=== PATIENT | female | born 1950 | race Hispanic/Latino ===

== ENCOUNTER 2018-10-18 22:40 | Emergency (ER) | payer MEDICARE ==
[~2018-10-18 22:40] MED LIST: ALBUHFA IH; CANA1TAB2 PO; LOSA1TAB37 PO; POTA-79 PO; PRAV40TA3 PO; PRED20TA3 PO; VITAMIN D2
[2018-10-19] MEDS ORDERED: IBUPROFEN 600 MG TABLET ONE
[2018-10-19] MEDS ORDERED: BENZONATATE 100 MG CAPSULE PO ONE
== END 2018-10-19 00:59 | disposition home or self-care (01) ==
LOC: EDH 22:40
DX: J06.9 Acute upper respiratory infection, unspecified (principal); J02.8 Acute pharyngitis due to other specified organisms; B97.89 Other viral agents as the cause of diseases classified elsewhere; I10 Essential (primary) hypertension; E78.5 Hyperlipidemia, unspecified; Z90.49 Acquired absence of other specified parts of digestive tract; Z98.890 Other specified postprocedural states
CPT/HCPCS: 87880

== ENCOUNTER 2018-11-14 11:23 | Inpatient (IN) | payer MEDICARE ==
[~2018-11-14] VITALS: Ht 157.5 cm; Wt 103.7 kg
[2018-11-14] MEDS ORDERED: ACETAMINOPHEN EXTRA STRENGTH 500 MG TABLET ONE (11:49)
[2018-11-14] MEDS ORDERED: SODIUM CHLORIDE 0.9% 1000ML 1,000 ML IV ONE ×2 (11:49→13:57)
[2018-11-14 12:09] LABS: APPEARANCE,URINE CLOUDY (CLEAR); BILIRUBIN,URINE NEGATIVE (NEGATIVE); COLOR,URINE YELLOW (YELLOW); GLUCOSE, URINE (UA) 500 mg/dL (NEGATIVE); KETONES,URINE NEGATIVE (NEGATIVE); LEUKOCYTE ESTERASE ,URINE SMALL (NEGATIVE); NITRATE,URINE POSITIVE (NEGATIVE); OCCULT BLOOD,URINE MODERATE (NEGATIVE); PROTEIN,URINE 100 mg/dL (NEGATIVE)
[2018-11-14 12:10] LABS: BACTERIA,URINE Many /HPF (None Seen); RBC,URINE 0-1 /HPF (0-1); WBC,URINE 26-50 /HPF (0-1)
[2018-11-14 12:11] LABS: SQUAMOUS EPITHELIAL CELL,UR Moderate /HPF (0-2)
[2018-11-14 12:22] LABS: BASOPHILS % (AUTO) 0.6 % (0.0-5.0); EOSINOPHILS % (AUTO) 0.1 % (0.0-8.0); HEMATOCRIT 38.3 % (36-48); MEAN CORPUSCULAR HEMOGLOBIN 28.5 pg (27.0-33.0); MEAN CORPUSCULAR HGB CONC 32.9 g/dL (32.0-36.0); MEAN CORPUSCULAR VOLUME 86.8 fL (79-99); MONOCYTES % (AUTO) 8.3 % (3.0-13.0); PLATELET COUNT (AUTO) 232 K/uL (130-400); RED BLOOD CELL COUNT(AUTO) 4.41 MIL/uL (4.00-5.50); RED CELL DISTRIBUTION WIDTH 16.6 % (11.0-15.5); WHITE BLOOD COUNT (AUTO) 18.8 K/uL (4.8-10.8)
[2018-11-14 12:38] LABS: CARBON DIOXIDE 26 mmol/L (21-32); CHLORIDE 96 mmol/L (101-111); CREATININE 1.5 mg/dL (0.5-1.5); GLOMERULAR FILTR. RATE CALC 37 mL/min (>60); GLUCOSE,RANDOM 196 mg/dL (70-105); POTASSIUM 3.3 mmol/L (3.5-5.1); SODIUM SERUM 136 mmol/L (136-145); UREA NITROGEN, BLOOD 27 mg/dL (7-18)
[2018-11-14 12:44] LABS: INR 0.95 (0.85-1.15); PARTIAL THROMBOPLASTIN TIME 29.1 SEC (26.3-35.5)
[2018-11-14] MEDS: SODIUM CHLORIDE 0.9% 1000ML 1,000 ML IV SCH ×2 (13:45→23:23)
[2018-11-14] MEDS ORDERED: ACETAMINOPHEN 325 MG TAB PO PRN ×2 (13:45)
[2018-11-14] MEDS ORDERED: ONDANSETRON HCL 4 MG/2 ML VIAL IV PRN (13:45)
[2018-11-14] MEDS ORDERED: MORPHINE SULFATE 2 MG/ML 1ML SYG IV PRN (13:45)
[2018-11-14] MEDS ORDERED: ZOSYN 3.375GM+NS 50ML 50 ML IV ONE (13:57)
[2018-11-14] MEDS ORDERED: POTASSIUM CHLORIDE 20 MEQ ERTAB PO ONE (14:04)
[2018-11-14 14:11] LABS: ALANINE AMINOTRANSFERASE 41 U/L (12-78); ALBUMIN 3.1 g/dL (3.5-5.0); MYOGLOBIN 103 ng/mL (10-92); TROPONIN I < 0.04 ng/mL (0.00-0.06)
[2018-11-14 14:12] LABS: ASPARTATE AMINOTRANSFERASE 20 U/L (10-37); BILIRUBIN,TOTAL 1.1 mg/dL (0.2-1.0); CREATINE KINASE, TOTAL 84 U/L (21-232); TOTAL PROTEIN, SERUM 7.3 g/dL (6.0-8.3)
[2018-11-14] MEDS ORDERED: LEVOFLOXACIN 750 MG/D5W 150 ML 150 ML ONE (15:09)
[2018-11-14] MEDS ORDERED: LIDOCAINE HCL-MPF 1% 2ML VIAL IVP PRN (15:15)
[2018-11-14] MEDS ORDERED: POTASSIUM CHLORIDE 10% ELIXIR 20 MEQ/15 ML UDCUP PO PRN (15:15)
[2018-11-14] MEDS ORDERED: POTASSIUM CHLORIDE 20MEQ/100ML 100 ML IV PRN (15:15)
[2018-11-14 15:55] VITALS: BP 101/47
[2018-11-14] MEDS ORDERED: CANA1TAB4 PO (17:57)
[2018-11-14] MEDS ORDERED: ATOR40TA69 PO (17:57)
[2018-11-14] MEDS ORDERED: VIT1TABL66 PO (17:57)
[2018-11-14] MEDS ORDERED: ASPI-555 PO (17:57)
[2018-11-14] MEDS ORDERED: LOSA1TAB37 PO (17:57)
[2018-11-14] MEDS ORDERED: POTA-9 PO (17:57)
[2018-11-14] MEDS ORDERED: CITA10TA7 PO (17:57)
[2018-11-14] MEDS ORDERED: PRAM0.122 PO (17:57)
[2018-11-14 19:18] VITALS: BP 95/56
[2018-11-14] MEDS: ZOSYN 3.375GM+NS 50ML 50 ML IV SCH (20:34)
[2018-11-14] MEDS: FAMOTIDINE 20MG TAB 20 MG TAB PO SCH (20:35)
--- NOTE | 2018-11-14 20:35 | NUR ---
ASSESS SHIFT ASSESSMENT DONE. DUE MEDS ADMINISTERED, TOLERATED WELL. KEPT RESTED AND COMFORTABLE. CALL LIGHT WITHIN REACH. WILL MONITOR PT.
[2018-11-14] MEDS: POTASSIUM CHLORIDE 20 MEQ ERTAB PO PRN ×2 (22:05→23:58)
--- NOTE | 2018-11-14 22:05 | NUR ---
KCL POTASSIUM COVERAGE CONTINUED. PO POTASSIUM GIVEN FOR KCL=3.3. TOLERATED WELL. ADMISSION PACKET GIVEN TO PT, SIGNED PAPERS PLACED IN CHART. KEPT COMFORTABLE. WILL MONITOR PT.
[2018-11-15] VITALS: BP 124/58
[2018-11-15] MEDS: SODIUM CHLORIDE 0.9% 1000ML 1,000 ML IV SCH ×4 (01:47→23:50)
--- NOTE | 2018-11-15 01:47 | NUR ---
IVF PT FAIRLY ASLEEP, NO DISTRESS NOTED. KEPT UNDISTURBED FOR NOW. NEW IV BAG HUNG. CALL LIGHT WITHIN REACH. WILL MONITOR PT.
[2018-11-15 04:18] VITALS: BP 111/53
[2018-11-15] MEDS: ZOSYN 3.375GM+NS 50ML 50 ML IV SCH ×3 (04:32→20:47)
--- NOTE | 2018-11-15 05:00 | NUR ---
PIV LAUNDRY OR DRY CLEANERS COUNTER CLERK WAS ABOUT TO HUNG IV ANTIBIOTICS WHEN NOTED PIV SITE BLEEDING. PT HAD ACCIDENTALLY PULLED OUT PIV WHEN SHE WENT TO THE [facility]. SHE CLAIMS THAT SHE FORGOT SHE HAS PIV. CATHETER INTACT. CLEANED PT AND NEW GOWN AND LINEN PROVIDED. RE-INSERTED PIV G20 TO RFA. PT TOLERATED RE-INSERTION WELL. CONTINUED IVF AND IV ANTIBIOTIC INFUSION. RE-ITERATED FALL PRECAUTIONS. INSTRUCTED PT TO CALL WHEN IN NEED TO GET OUT OF BED. CALL LIGHT WITHIN REACH. BED ALARM ACTIVATED. Addendum: 11/15/18 at 0513 by ANTONI HAN RN RN Amended: Links added.
[2018-11-15 05:18] LABS: HEMATOCRIT 31.7 % (36-48); MEAN CORPUSCULAR HEMOGLOBIN 28.9 pg (27.0-33.0); MEAN CORPUSCULAR HGB CONC 33.5 g/dL (32.0-36.0); MEAN CORPUSCULAR VOLUME 86.3 fL (79-99); PLATELET COUNT (AUTO) 184 K/uL (130-400); RED BLOOD CELL COUNT(AUTO) 3.68 MIL/uL (4.00-5.50); RED CELL DISTRIBUTION WIDTH 17.1 % (11.0-15.5); WHITE BLOOD COUNT (AUTO) 13.6 K/uL (4.8-10.8)
[2018-11-15 05:31] LABS: ALBUMIN 2.2 g/dL (3.5-5.0); BILIRUBIN,TOTAL 0.9 mg/dL (0.2-1.0); CREATININE 1.1 mg/dL (0.5-1.5); POTASSIUM 3.4 mmol/L (3.5-5.1); TOTAL PROTEIN, SERUM 5.8 g/dL (6.0-8.3)
[2018-11-15] MEDS: POTASSIUM CHLORIDE 20 MEQ ERTAB PO PRN (06:01)
[2018-11-15 07:30] VITALS: BP 125/60
--- NOTE | 2018-11-15 07:35 | NUR ---
ASSESSMENT ENCOUNTERED PT IN HIGH OCHOA'S POSITION, A&OX3, CALM COOPERATIVE AND DOES NOT APPEAR TO BE IN ANY DISTRESS NOR ANY NEURO DEFICITS PRESENT. PT DENIES PAIN, SOB, NAUSEA. PT DOES C/O GENERALIZED BODY WEAKNESS WITH INTERMITTENT DISCOMFORT TO BILATERAL SIDES OF FACE, NO REDNESS PRESENT BUT IS TENDER TO TOUCH, PT IS AMBULATORY, GAIT SLOW BUT STEADY WITH ASSIST. CALL LIGHT WITHIN REACH.
[2018-11-15] MEDS: ENOXAPARIN SODIUM 30 MG/0.3 ML SQ SCH (10:20)
[2018-11-15 11:00] VITALS: BP 116/59
--- NOTE | 2018-11-15 11:35 | NUR ---
DC Sw met with pt who lives alone, sister Lorelei Mcduffie [phone] is ER contact and assist with transport prn. Pt has provider 5hr daily and no DME or HH services. Pt sees Dr Oliva Larson and uses [facility]. Denies dc needs, plan is home at dc Addendum: 11/15/18 at 1137 by FAB AMANDA Amended: Links added.
[2018-11-15 16:00] VITALS: BP 124/61
[2018-11-15 20:00] VITALS: BP 134/64
[2018-11-15] MEDS: FAMOTIDINE 20MG TAB 20 MG TAB PO SCH (20:47)
--- NOTE | 2018-11-15 20:47 | NUR ---
ASSESS SHIFT ASSESSMENT DONE, PLEASE REFER TO CHART. DUE MEDS ADMINISTERED, TOLERATED WELL. KEPT RESTED AND COMFORTABLE. CALL LIGHT WITHIN REACH. WILL MONITOR PT.
[2018-11-15] MEDS: INSULIN HUMULIN R 100 UNIT/ML 3ML SQ SCH (20:48)
[2018-11-16] VITALS: BP 129/58
--- NOTE | 2018-11-16 02:00 | NUR ---
ROUNDS PT RESTING WELL. NO DISTRESS NOTED. KEPT UNDISTURBED. WILL MONITOR.
[2018-11-16 04:00] VITALS: BP 141/80
[2018-11-16] MEDS: SODIUM CHLORIDE 0.9% 1000ML 1,000 ML IV SCH (04:20)
[2018-11-16] MEDS: ZOSYN 3.375GM+NS 50ML 50 ML IV SCH (04:20)
[2018-11-16 05:00] LABS: HEMATOCRIT 30.9 % (36-48); MEAN CORPUSCULAR HEMOGLOBIN 28.3 pg (27.0-33.0); MEAN CORPUSCULAR HGB CONC 32.6 g/dL (32.0-36.0); MEAN CORPUSCULAR VOLUME 86.9 fL (79-99); PLATELET COUNT (AUTO) 184 K/uL (130-400); RED BLOOD CELL COUNT(AUTO) 3.56 MIL/uL (4.00-5.50); RED CELL DISTRIBUTION WIDTH 16.7 % (11.0-15.5)
[2018-11-16 05:14] LABS: CREATININE 1.1 mg/dL (0.5-1.5); POTASSIUM 3.2 mmol/L (3.5-5.1)
[2018-11-16] MEDS: POTASSIUM CHLORIDE 20 MEQ ERTAB PO PRN ×2 (05:29→09:31)
[2018-11-16] MEDS: INSULIN HUMULIN R 100 UNIT/ML 3ML SQ SCH ×4 (06:05→20:30)
--- NOTE | 2018-11-16 07:15 | NUR ---
REPORT REPORT GIVEN TO AM SHIFT. PT RESTING WELL. ENDORSING FOR MORE CARE AND MANAGEMENT.
[2018-11-16 07:39] VITALS: BP 125/57
[2018-11-16] MEDS: ENOXAPARIN SODIUM 30 MG/0.3 ML SQ SCH (09:29)
[2018-11-16 11:42] VITALS: BP 121/47
[2018-11-16] MEDS: LEVOFLOXACIN 500 MG/D5W 100 ML 100 ML IV SCH (12:28)
[2018-11-16] MEDS: POTASSIUM CHLORIDE 20 MEQ ERTAB PO SCH ×3 (12:33→20:30)
[2018-11-16 16:33] VITALS: BP 135/61
[2018-11-16 20:00] VITALS: BP 132/67
[2018-11-16] MEDS: FAMOTIDINE 20MG TAB 20 MG TAB PO SCH (20:30)
--- NOTE | 2018-11-16 20:30 | NUR ---
MEDS SHIFT ASSESSMENT DONE, PLEASE REFER TO CHART. DUE MEDS ADMINISTERED, TOLERATED WELL. KEPT RESTED AND COMFORTABLE. CALL LIGHT WITHIN REACH. WILL MONITOR PT.
[2018-11-17] VITALS: BP 136/67
--- NOTE | 2018-11-17 02:00 | NUR ---
ROUNDS PT FAIRLY ASLEEP WITH RESPIRATIONS EVEN AND UNLABORED. NO DISTRESS NOTED. KEPT UNDISTURBED FOR NOW. WILL CONTINUET O MONITOR. CALL LIGHT WITHIN REACH.
[2018-11-17 04:12] VITALS: BP 124/66
--- NOTE | 2018-11-17 05:00 | NUR ---
ROUNDS PT STILL FAIRLY ASLEEP. NO DISTRESS NOTED. KEPT RESTED AND COMFORTABLE. FOR MORE CARE.
[2018-11-17 06:10] LABS: HEMATOCRIT 30.5 % (36-48); MEAN CORPUSCULAR HEMOGLOBIN 29.5 pg (27.0-33.0); MEAN CORPUSCULAR HGB CONC 34.3 g/dL (32.0-36.0); MEAN CORPUSCULAR VOLUME 86.1 fL (79-99); PLATELET COUNT (AUTO) 202 K/uL (130-400); RED BLOOD CELL COUNT(AUTO) 3.54 MIL/uL (4.00-5.50); RED CELL DISTRIBUTION WIDTH 17.1 % (11.0-15.5)
[2018-11-17] MEDS: INSULIN HUMULIN R 100 UNIT/ML 3ML SQ SCH ×2 (06:19→11:30)
[2018-11-17 06:23] LABS: CREATININE 0.9 mg/dL (0.5-1.5); POTASSIUM 4.1 mmol/L (3.5-5.1)
[2018-11-17 08:00] VITALS: BP 148/59
--- NOTE | 2018-11-17 08:30 | NUR ---
ACTIVITY: AMB IN ROOM, WITH NO C/O.
[2018-11-17] MEDS: ENOXAPARIN SODIUM 30 MG/0.3 ML SQ SCH (09:00)
[2018-11-17] MEDS: POTASSIUM CHLORIDE 20 MEQ ERTAB PO SCH (09:01)
[2018-11-17] MEDS: LEVOFLOXACIN 500 MG/D5W 100 ML 100 ML IV SCH (09:36)
--- NOTE | 2018-11-17 10:32 | NUR ---
ASSESSMENT: WILIAM HERNANDEZ LIGHT RAIL VEHICLE OPERATOR REVIEWED LABS , CULTURES , DISCUSSED POC WITH PT FOR DISCHARGE HOME AND UNDERSTANDING VERBALIZED AND AGREES WITH POC.
[2018-11-17] MEDS ORDERED: LEVO500T2 PO (10:34)
[2018-11-17 12:00] VITALS: BP 120/68
--- NOTE | 2018-11-17 14:30 | NUR ---
DISCHARGE: DISCHARGE INSTRUCTIONS GIVEN TO PT AND SISTER PER SAHRA VILLAGOMEZ RN ([facility]). 1445 DISCHARGED HOME VIA W/C TO PRIVATE CAR WITH HER SISTER.
== END 2018-11-17 14:45 | disposition home or self-care (01) | DRG 872 ==
LOC: EDH 11:23 → EDHIP 13:49 → 3CH 16:19
PROVIDERS: ADMIT Hospitalist; ATTEND Hospitalist
DX: A41.9 Sepsis, unspecified organism (principal); N39.0 Urinary tract infection, site not specified; Z68.41 Body mass index [BMI] 40.0-44.9, adult; H70.91 Unspecified mastoiditis, right ear; I10 Essential (primary) hypertension; E11.9 Type 2 diabetes mellitus without complications; E78.5 Hyperlipidemia, unspecified; M19.90 Unspecified osteoarthritis, unspecified site; E87.6 Hypokalemia; B96.20 Unspecified Escherichia coli [E. coli] as the cause of diseases classified elsewhere; E66.9 Obesity, unspecified; Z82.49 Family history of ischemic heart disease and other diseases of the circulatory system; Z83.3 Family history of diabetes mellitus; Z79.84 Long term (current) use of oral hypoglycemic drugs
CPT/HCPCS: 36415; 70450; 71045; 80048; 80053; 81001; 82550; 82948; 83605; 83874; 84484; 85025; 85027; 85610; 85730; 87040; 87077; 87088; 87186; 87324; 87804; 93005; 97039; 99291; G0378; J1650; J1956; J2543; J7030

== ENCOUNTER 2019-02-16 18:59 | Emergency (ER) | payer MEDICARE ==
[~2019-02-16 18:59] MED LIST changes: -ALBUHFA IH; +ASPI-555 PO; +ATOR40TA69 PO; -CANA1TAB2 PO; +CANA1TAB4 PO; +CITA10TA7 PO; +LEVO500T2 PO; -POTA-79 PO; +POTA-9 PO; +PRAM0.122 PO; -PRAV40TA3 PO; -PRED20TA3 PO; +VIT1TABL66 PO
[2019-02-16 19:19] LABS: APPEARANCE,URINE CLOUDY (CLEAR); BILIRUBIN,URINE NEGATIVE (NEGATIVE); COLOR,URINE YELLOW (YELLOW); GLUCOSE, URINE (UA) >=1000 mg/dL (NEGATIVE); KETONES,URINE 5 mg/dL (NEGATIVE); LEUKOCYTE ESTERASE ,URINE TRACE (NEGATIVE); NITRATE,URINE POSITIVE (NEGATIVE); OCCULT BLOOD,URINE SMALL (NEGATIVE); PROTEIN,URINE 30 mg/dL (NEGATIVE); UROBILINOGEN,URINE 0.2 mg/dL (0.2-1.0)
[2019-02-16 19:28] LABS: BACTERIA,URINE Moderate /HPF (None Seen); SQUAMOUS EPITHELIAL CELL,UR Moderate /HPF (0-2)
[2019-02-16 19:29] LABS: MUCUS,URINE Few LPF (None Seen)
[2019-02-16] MEDS ORDERED: SODIUM CHLORIDE 0.9% 1000ML 1,000 ML IV ONE (19:29)
[2019-02-16 19:33] LABS: BASOPHILS % (AUTO) 0.7 % (0.0-5.0); EOSINOPHILS % (AUTO) 1.8 % (0.0-8.0); HEMATOCRIT 33.1 % (36-48); LYMPHOCYTES % (AUTO) 9.2 % (21.0-51.0); MEAN CORPUSCULAR HEMOGLOBIN 28.9 pg (27.0-33.0); MEAN CORPUSCULAR HGB CONC 33.4 g/dL (32.0-36.0); MEAN CORPUSCULAR VOLUME 86.4 fL (79-99); MONOCYTES % (AUTO) 5.1 % (3.0-13.0); NEUTROPHILS % (AUTO) 83.2 % (40.0-77.0); PLATELET COUNT (AUTO) 274 K/uL (130-400); RED BLOOD CELL COUNT(AUTO) 3.83 MIL/uL (4.00-5.50); RED CELL DISTRIBUTION WIDTH 15.1 % (11.0-15.5); WHITE BLOOD COUNT (AUTO) 16.8 K/uL (4.8-10.8)
[2019-02-16 19:44] LABS: CREATININE 1.1 mg/dL (0.5-1.5); POTASSIUM 3.3 mmol/L (3.5-5.1)
[2019-02-16 19:49] LABS: ALBUMIN 2.9 g/dL (3.5-5.0); BILIRUBIN,TOTAL 0.7 mg/dL (0.2-1.0); TOTAL PROTEIN, SERUM 6.5 g/dL (6.0-8.3)
[2019-02-16] MEDS ORDERED: ONDANSETRON HCL 4 MG/2 ML VIAL ONE (20:05)
[2019-02-16] MEDS ORDERED: LIDOCAINE HCL 2% VISCOUS 15 ML UDCUP ONE (20:05)
[2019-02-16] MEDS ORDERED: MAGNESIUM HYDROXIDE 30 ML/UDCUP ONE (20:05)
[2019-02-16] MEDS ORDERED: CEFTRIAXONE SODIUM 1 GM ONE (20:05)
[2019-02-16] MEDS ORDERED: FAMOTIDINE/PF 20 MG/2 ML VIAL IV ONE (20:06)
[2019-02-16] MEDS ORDERED: IOHEXOL-350 75 ML VIAL IV ONE (20:39)
== END 2019-02-16 21:47 | disposition home or self-care (01) ==
LOC: EDH 18:59
DX: K29.00 Acute gastritis without bleeding (principal); N10 Acute pyelonephritis; E78.5 Hyperlipidemia, unspecified; I10 Essential (primary) hypertension
CPT/HCPCS: 36415; 74177; 80053; 81001; 83690; 85025; 96374; 96375; 99285; J0696; J2405; J3490; J7030; Q9967

== ENCOUNTER 2019-07-09 12:52 | Emergency (ER) | payer MEDICARE ==
[2019-07-09] MEDS ORDERED: ASPIRIN 325 MG TABLET ONE (13:03)
[2019-07-09] MEDS ORDERED: SODIUM CHLORIDE 0.9% 1000ML 1,000 ML IV ONE ×2 (14:00→15:55)
[2019-07-09 14:15] LABS: BASOPHILS % (AUTO) 0.2 % (0.0-5.0); HEMATOCRIT 35.1 % (36-48); LYMPHOCYTES % (AUTO) 8.9 % (21.0-51.0); MEAN CORPUSCULAR HEMOGLOBIN 26.8 pg (27.0-33.0); MEAN CORPUSCULAR HGB CONC 32.2 g/dL (32.0-36.0); MEAN CORPUSCULAR VOLUME 83.4 fL (79-99); MONOCYTES % (AUTO) 5.2 % (3.0-13.0); PLATELET COUNT (AUTO) 246 K/uL (130-400); RED BLOOD CELL COUNT(AUTO) 4.21 MIL/uL (4.00-5.50); RED CELL DISTRIBUTION WIDTH 14.5 % (11.0-15.5); WHITE BLOOD COUNT (AUTO) 14.7 K/uL (4.8-10.8)
[2019-07-09 14:31] LABS: POTASSIUM 3.1 mmol/L (3.5-5.1)
[2019-07-09 14:36] LABS: ALBUMIN 3.1 g/dL (3.5-5.0); BILIRUBIN,TOTAL 0.9 mg/dL (0.2-1.0)
[2019-07-09 15:35] LABS: INR 1.04 (0.85-1.15); PARTIAL THROMBOPLASTIN TIME 28.5 SEC (26.3-35.5); PROTHROMBIN TIME 10.9 SEC (9.6-11.6)
[2019-07-09] MEDS ORDERED: POTASSIUM CHLORIDE 20 MEQ ERTAB PO ONE (15:55)
[2019-07-09] MEDS ORDERED: AMOXICILLIN/POTASSIUM CLAV 875-125 TABLET PO ONE (16:45)
== END 2019-07-09 18:51 | disposition home or self-care (01) ==
LOC: EDH 12:52
DX: R10.84 Generalized abdominal pain (principal); R50.9 Fever, unspecified; M79.10 Myalgia, unspecified site; I10 Essential (primary) hypertension; E78.5 Hyperlipidemia, unspecified; E66.9 Obesity, unspecified; Z90.49 Acquired absence of other specified parts of digestive tract; Z98.890 Other specified postprocedural states
CPT/HCPCS: 36415; 71045; 74176; 80053; 82550; 83880; 84484; 85025; 85610; 85730; 87804 ×2; 93005; 99285; J7030 ×2

== ENCOUNTER 2020-08-31 09:00 | Inpatient (IN) | payer MEDICARE ==
[~2020-08-31] VITALS: Ht 158.8 cm; Wt 119.8 kg
[~2020-08-31 09:00] MED LIST changes: -ASPI-555 PO; -CANA1TAB4 PO; -CITA10TA7 PO; +CITA10TA89 PO; -LEVO500T2 PO; -LOSA1TAB37 PO; +POTA-10 PO; -POTA-9 PO; -VIT1TABL66 PO; -VITAMIN D2; +VITAMIN D2 PO
[2020-08-31 10:52] LABS: APPEARANCE,URINE Clear (CLEAR); BILIRUBIN,URINE Negative (NEGATIVE); COLOR,URINE Yellow (YELLOW); GLUCOSE, URINE (UA) Negative (NEGATIVE); KETONES,URINE Negative (NEGATIVE); LEUKOCYTE ESTERASE ,URINE Moderate (NEGATIVE); NITRATE,URINE Negative (NEGATIVE); OCCULT BLOOD,URINE Trace (NEGATIVE); PROTEIN,URINE Trace mg/dL (NEGATIVE); UROBILINOGEN,URINE 0.2 mg/dL (0.2-1.0)
[2020-08-31 11:01] LABS: BASOPHILS % (AUTO) 0.8 % (0.0-5.0); EOSINOPHILS % (AUTO) 7.1 % (0.0-8.0); HEMATOCRIT 34.4 % (36-48); LYMPHOCYTES % (AUTO) 15.4 % (21.0-51.0); MEAN CORPUSCULAR HEMOGLOBIN 27.6 pg (27.0-33.0); MEAN CORPUSCULAR HGB CONC 32.3 g/dL (32.0-36.0); MEAN CORPUSCULAR VOLUME 85.6 fL (79-99); MONOCYTES % (AUTO) 6.3 % (3.0-13.0); PLATELET COUNT (AUTO) 259 K/uL (130-400); RED BLOOD CELL COUNT(AUTO) 4.02 MIL/uL (4.00-5.50); RED CELL DISTRIBUTION WIDTH 13.7 % (11.0-15.5); WHITE BLOOD COUNT (AUTO) 10.9 K/uL (4.8-10.8)
[2020-08-31 11:09] LABS: CREATININE 0.9 mg/dL (0.5-1.5)
[2020-08-31 11:26] LABS: BACTERIA,URINE Few /HPF (None Seen); MUCUS,URINE Few LPF (None Seen)
[2020-08-31 12:41] LABS: INR 1.01 (0.85-1.15); PROTHROMBIN TIME 10.5 SEC (9.6-11.6)
[2020-09-04] MEDS ORDERED: LOSA50TA64 PO (12:52)
[2020-09-04] MEDS ORDERED: BUDE10.22 IH (12:52)
[2020-09-04] MEDS ORDERED: HYDR12.54 PO (12:52)
[2020-09-04] MEDS ORDERED: A20IH1 IH (12:52)
[2020-09-05] VITALS (22 sets, daily range): BP systolic 107–152; BP diastolic 47–97
[2020-09-05] MEDS ORDERED: 0.9%NACL 1000ML 1,000 ML IV ONE (06:44)
[2020-09-05] MEDS: CEFAZOLIN SODIUM 1 GM VIAL ONE ×2 (07:34→11:22)
[2020-09-05] MEDS ORDERED: CEFAZOLIN SODIUM 1 GM VIAL ONE ×2 (07:55→18:14)
[2020-09-05] MEDS: GENTAMICIN SULFATE 240 MG in 0.9%NACL 100ML 100 ML IV SCH ×3 (08:23→15:18)
[2020-09-05] MEDS: CEFAZOLIN SODIUM 1 GM VIAL IVP ONE ×2 (08:27→10:40)
[2020-09-05] MEDS ORDERED: CELECOXIB 200 MG CAP ONE (09:17)
[2020-09-05] MEDS ORDERED: METOCLOPRAMIDE 10 MG/2 ML VIAL ONE (09:17)
[2020-09-05] MEDS ORDERED: KETOROLAC 15MG/ML VIAL (15MG/ML) ONE (09:17)
[2020-09-05] MEDS ORDERED: ACETAMINOPHEN 500 MG TABLET ONE (09:17)
[2020-09-05] MEDS ORDERED: LIDOCAINE HCL-MPF 1% 5ML AMP IJ ONE (09:34)
[2020-09-05] MEDS ORDERED: FENTANYL CITRATE PF 50 MCG/1 ML 2ML VIAL ONE ×2 (09:35→11:20)
[2020-09-05] MEDS ORDERED: ROCURONIUM 10MG/1ML SYR 10 MG/ML ML ONE (09:35)
[2020-09-05] MEDS ORDERED: MIDAZOLAM HCL 1 MG/ML 2ML VIAL ONE (09:35)
[2020-09-05] MEDS ORDERED: PROPOFOL 10 MG/ML 20ML VIAL IV ONE ×2 (09:35→12:47)
[2020-09-05] MEDS ORDERED: TRANEXAMIC ACID 1000MG/10ML ONE ×2 (09:58→13:30)
[2020-09-05] MEDS ORDERED: EPHEDRINE SULFATE 50 MG/ML AMPULE ONE (10:47)
[2020-09-05] MEDS ORDERED: KCL 20 MEQ ERTAB PO PRN (13:00)
[2020-09-05] MEDS ORDERED: TRAMADOL HCL 50 MG TABLET PO PRN (13:00)
[2020-09-05] MEDS ORDERED: DiphenhydrAMINE HCL 50 MG/ML VIAL IVP PRN (13:00)
[2020-09-05] MEDS ORDERED: POTASSIUM CHLORIDE 10% ELIXIR 20 MEQ/15 ML UDCUP PO PRN (13:00)
[2020-09-05] MEDS ORDERED: FERROUS FUMARATE 324 MG TABLET PO PRN (13:00)
[2020-09-05] MEDS ORDERED: POTASSIUM CHLORIDE 20MEQ/100ML 100 ML IV PRN (13:00)
[2020-09-05] MEDS ORDERED: KETOROLAC 15MG/ML VIAL (15MG/ML) IV PRN (13:00)
[2020-09-05] MEDS: ACETAMINOPHEN 500 MG TABLET PO SCH ×2 (13:00→19:50)
[2020-09-05] MEDS: 0.9%NACL 1000ML 1,000 ML IV SCH ×3 (13:00→19:59)
[2020-09-05] MEDS ORDERED: TEMAZEPAM 15 MG CAPSULE PO PRN (13:00)
[2020-09-05] MEDS ORDERED: LIDOCAINE HCL-MPF 1% 2ML VIAL IV PRN (13:00)
[2020-09-05] MEDS ORDERED: ONDANSETRON 4MG INJ IVP PRN (13:00)
[2020-09-05] MEDS ORDERED: GLYCOPYRROLATE 1 MG/5 ML SYRINGE ONE (13:10)
[2020-09-05] MEDS ORDERED: MEPERIDINE-PF 25 MG/ML SYG ONE (14:08)
[2020-09-05] MEDS ORDERED: ALBUTEROL INHALER 90MCG/INH IH PRN (15:15)
[2020-09-05] MEDS ORDERED: EMPA25TA PO (16:14)
[2020-09-05] MEDS: INSULIN HUMULIN R 100 UNIT/ML 3ML SQ SCH ×2 (16:30→19:52)
[2020-09-05] MEDS: CEFAZOLIN SODIUM 100 GM IV SCH (18:00)
[2020-09-05] MEDS: OXYCODONE HCL 5 MG TAB PO PRN (18:25)
[2020-09-05] MEDS ORDERED: ASPIRIN 81MG CHEW TAB ONE (18:47)
[2020-09-05] MEDS ORDERED: FAMOTIDINE 20MG TAB ONE (18:47)
[2020-09-05] MEDS ORDERED: PREGABALIN 25 MG CAP ONE (18:48)
[2020-09-05] MEDS ORDERED: ATORVASTATIN 40 MG TABLET ONE (18:48)
[2020-09-05] MEDS: PREGABALIN 25 MG CAP PO SCH (19:50)
[2020-09-05] MEDS: ATORVASTATIN 40 MG TABLET PO SCH (19:50)
[2020-09-05] MEDS: FAMOTIDINE 20MG TAB PO SCH (19:50)
[2020-09-05] MEDS: ASPIRIN 81MG CHEW TAB PO SCH (19:51)
[2020-09-05] MEDS ORDERED: ASPIRIN 325 MG TABLET PO SCH (21:00)
[2020-09-06] MEDS: CEFAZOLIN SODIUM 100 GM IV SCH (00:54)
[2020-09-06] MEDS: ACETAMINOPHEN 500 MG TABLET PO SCH ×3 (03:37→19:45)
[2020-09-06 04:32] VITALS: BP 106/44
[2020-09-06 04:33] LABS: HEMATOCRIT 27.1 % (36-48); MEAN CORPUSCULAR HEMOGLOBIN 26.6 pg (27.0-33.0); MEAN CORPUSCULAR HGB CONC 30.6 g/dL (32.0-36.0); MEAN CORPUSCULAR VOLUME 86.9 fL (79-99); PLATELET COUNT (AUTO) 210 K/uL (130-400); RED BLOOD CELL COUNT(AUTO) 3.12 MIL/uL (4.00-5.50); RED CELL DISTRIBUTION WIDTH 14.4 % (11.0-15.5); WHITE BLOOD COUNT (AUTO) 11.4 K/uL (4.8-10.8)
[2020-09-06 04:51] LABS: CREATININE 1.2 mg/dL (0.5-1.5); POTASSIUM 3.4 mmol/L (3.5-5.1)
[2020-09-06] MEDS: INSULIN HUMULIN R 100 UNIT/ML 3ML SQ SCH ×4 (04:52→19:53)
[2020-09-06] MEDS: CALCIUM CARB 500MG PO PRN ×2 (04:59→16:54)
[2020-09-06] MEDS: POLYETHYLENE GLYCOL 3350 17 GM POWD.PACK PO SCH (07:41)
[2020-09-06] MEDS: POTASSIUM CHLORIDE 10MEQ SR TAB PO SCH (07:42)
[2020-09-06] MEDS: ASPIRIN 81MG CHEW TAB PO SCH ×2 (07:42→19:44)
[2020-09-06] MEDS: OXYCODONE HCL 5 MG TAB PO PRN ×3 (07:42→16:54)
[2020-09-06] MEDS: PREGABALIN 25 MG CAP PO SCH ×2 (07:43→19:43)
[2020-09-06] MEDS: CITALOPRAM 20 MG TABLET PO SCH (07:43)
[2020-09-06] MEDS: FAMOTIDINE 20MG TAB PO SCH ×2 (07:43→19:44)
[2020-09-06 08:08] VITALS: BP 125/57
[2020-09-06] MEDS: FLUTICASONE/VILANTEROL 1 EACH BLST.W.DEV IH SCH (08:41)
[2020-09-06] MEDS: PRAMIPEXOLE DI-HCL 0.25 MG TABLET PO SCH (08:42)
[2020-09-06] MEDS: HYDROCHLOROTHIAZIDE 25 MG TABLET PO SCH (08:42)
[2020-09-06] MEDS: LOSARTAN 50 MG TABLET PO SCH (08:43)
[2020-09-06 16:00] VITALS: BP 161/76
[2020-09-06] MEDS: ATORVASTATIN 40 MG TABLET PO SCH (19:44)
[2020-09-06 20:00] VITALS: BP 154/80
[2020-09-06 23:41] VITALS: BP 137/72
[2020-09-07] MEDS: ACETAMINOPHEN 500 MG TABLET PO SCH ×2 (03:30→13:00)
[2020-09-07 04:00] VITALS: BP 140/70
[2020-09-07] MEDS: INSULIN HUMULIN R 100 UNIT/ML 3ML SQ SCH ×3 (05:47→16:55)
[2020-09-07 07:30] VITALS: BP 141/65
[2020-09-07] MEDS: OXYCODONE HCL 5 MG TAB PO PRN ×3 (08:03→16:55)
[2020-09-07] MEDS: POTASSIUM CHLORIDE 10MEQ SR TAB PO SCH (10:21)
[2020-09-07] MEDS: PREGABALIN 25 MG CAP PO SCH (10:21)
[2020-09-07] MEDS: HYDROCHLOROTHIAZIDE 25 MG TABLET PO SCH (10:21)
[2020-09-07] MEDS: ASPIRIN 81MG CHEW TAB PO SCH ×2 (10:21→18:50)
[2020-09-07] MEDS: FAMOTIDINE 20MG TAB PO SCH (10:21)
[2020-09-07] MEDS: CITALOPRAM 20 MG TABLET PO SCH (10:22)
[2020-09-07] MEDS: PRAMIPEXOLE DI-HCL 0.25 MG TABLET PO SCH (10:22)
[2020-09-07] MEDS: POLYETHYLENE GLYCOL 3350 17 GM POWD.PACK PO SCH (10:22)
[2020-09-07] MEDS: LOSARTAN 50 MG TABLET PO SCH (10:22)
[2020-09-07] MEDS: FLUTICASONE/VILANTEROL 1 EACH BLST.W.DEV IH SCH (10:25)
[2020-09-07 11:00] VITALS: BP 126/60
[2020-09-07 16:00] VITALS: BP 127/67
[2020-09-07] MEDS ORDERED: ACET1TAB25 PO (16:56)
[2020-09-07] MEDS ORDERED: APIX2.5T PO (16:56)
[2020-09-08] MEDS ORDERED: ERGOCALCIFEROL (VITAMIN D2) 50,000 UNIT CAPSULE PO SCH (09:00)
[2020-09-08] MEDS ORDERED: BISACODYL 10 MG SUPP.RECT RC PRN (13:00)
== END 2020-09-07 18:54 | DRG 470 ==
LOC: EDSTATUS 09:00 → DAHIP 09-05 06:27 → OBSVTOIN 09-05 06:27 → 4AH 09-05 15:08
PROVIDERS: ADMIT Orthopaedic Surgery; ATTEND Orthopaedic Surgery
PROC: 0SRD0J9 Replacement of Left Knee Joint with Synthetic Substitute, Cemented, Open Approach (ICD-10-PCS; principal; 2020-09-05 11:22)
DX: M17.12 Unilateral primary osteoarthritis, left knee (principal); Z68.42 Body mass index [BMI] 45.0-49.9, adult; D64.9 Anemia, unspecified; E11.9 Type 2 diabetes mellitus without complications; I10 Essential (primary) hypertension; M06.9 Rheumatoid arthritis, unspecified; E66.9 Obesity, unspecified; Z96.651 Presence of right artificial knee joint; Z20.822 Contact with and (suspected) exposure to COVID-19; Z90.49 Acquired absence of other specified parts of digestive tract; Z83.3 Family history of diabetes mellitus; Z82.49 Family history of ischemic heart disease and other diseases of the circulatory system
CPT/HCPCS: 36415; 80048; 81001; 82948; 85025; 85027; 85610; 87088; 87641; 88305; 97039; G0378; J0690; J1580; J1815; J1885; J2175; J2250; J2704; J2765; J3010; J3490; J7030; U0003

== ENCOUNTER 2022-01-12 19:26 | Observation (INO) | payer OTHER, MEDICARE ==
[~2022-01-12] VITALS: Ht 157.5 cm; Wt 103.3 kg
[~2022-01-12 19:26] MED LIST changes: +A20IH1 IH; +ACET-2079 PO; +APIX2.5T PO; +BUDE10.22 IH; +EMPA25TA PO; +HYDR12.54 PO; +LOSA50TA64 PO; -POTA-10 PO; +POTA-200 PO
[2022-01-12 19:57] LABS: BASOPHILS % (AUTO) 0.5 % (0.0-5.0); EOSINOPHILS % (AUTO) 3.8 % (0.0-8.0); HEMATOCRIT 37.4 % (36-48); LYMPHOCYTES % (AUTO) 14.8 % (21.0-51.0); MEAN CORPUSCULAR HEMOGLOBIN 26.8 pg (27.0-33.0); MEAN CORPUSCULAR HGB CONC 31.6 g/dL (32.0-36.0); MONOCYTES % (AUTO) 5.6 % (3.0-13.0); NEUTROPHILS % (AUTO) 74.9 % (40.0-77.0); PLATELET COUNT (AUTO) 289 K/uL (130-400); RED CELL DISTRIBUTION WIDTH 14.6 % (11.0-15.5); WHITE BLOOD COUNT (AUTO) 16.1 K/uL (4.8-10.8)
[2022-01-12 19:58] LABS: APPEARANCE,URINE SL CLOUDY (CLEAR); BILIRUBIN,URINE NEGATIVE (NEGATIVE); COLOR,URINE YELLOW (YELLOW); GLUCOSE, URINE (UA) >=1000 mg/dL (NEGATIVE); KETONES,URINE NEGATIVE (NEGATIVE); LEUKOCYTE ESTERASE ,URINE TRACE (NEGATIVE); NITRATE,URINE NEGATIVE (NEGATIVE); OCCULT BLOOD,URINE NEGATIVE (NEGATIVE); PROTEIN,URINE NEGATIVE (NEGATIVE); UROBILINOGEN,URINE 0.2 mg/dL (0.2-1.0)
[2022-01-12] MEDS ORDERED: NITROGLYCERIN 1GM OINT 1 INCH/1GM TD ONE (20:00)
[2022-01-12] MEDS: NITROGLYCERIN 0.4 MG SL TAB SL PRN (20:01)
[2022-01-12 20:05] LABS: BACTERIA,URINE Rare /HPF (None Seen); MUCUS,URINE Few LPF (None Seen); SQUAMOUS EPITHELIAL CELL,UR Few /HPF (0-2); YEAST,URINE BUDDING Few /HPF (None Seen)
[2022-01-12 20:14] LABS: ALBUMIN 3.2 g/dL (3.5-5.0); CREATININE 1.1 mg/dL (0.5-1.5); POTASSIUM 4.1 mmol/L (3.5-5.1)
[2022-01-12 20:17] LABS: B-TYPE NATRIURETIC PEPTIDE < 5 pg/mL (0-100)
[2022-01-12] MEDS ORDERED: FLUCONAZOLE 100 MG TAB ONE (20:26)
[2022-01-12] MEDS ORDERED: FLUCONAZOLE 100 MG TAB PO ONE (20:30)
[2022-01-12] MEDS ORDERED: CEFTRIAXONE 1G VIAL IVP ONE (21:30)
[2022-01-12 21:55] LABS: ABG BASE EXCESS 2.2 mmol/L (-2.0-3.0); ABG HCO3 27.1 mmol/L (21.0-28.0); ABG OXYGEN SATURATION 93.5 % (95.0-99.0); ABG PCO2 43 mmHg (32-45)
[2022-01-12] MEDS ORDERED: ASPIRIN 81MG CHEW TAB PO ONE (22:30)
[2022-01-12] MEDS: NITROGLYCERIN 1GM OINT 1 INCH/1GM TD SCH (22:30)
[2022-01-12] MEDS ORDERED: ACETAMINOPHEN 325 MG TAB PO PRN (22:30)
[2022-01-12] MEDS ORDERED: ONDANSETRON 4MG INJ IV PRN (22:30)
[2022-01-12] MEDS: 0.9%NACL 1000ML 1,000 ML IV SCH (23:17)
[2022-01-12] MEDS: IPRATROPIUM/ALBUTEROL SULFATE 3 ML SOLUTION IH SCH (23:23)
[2022-01-12] MEDS ORDERED: SODIUM CHLORIDE 3% FOR INHALATION 4 ML/AMP VIAL.NEB IH ONE (23:39)
[2022-01-13] MEDS: ZOSYN 3.375GM+NS 50ML 50 ML IV SCH ×3 (04:50→20:45)
[2022-01-13 05:12] VITALS: BP 154/83
[2022-01-13] MEDS: NITROGLYCERIN 1GM OINT 1 INCH/1GM TD SCH (05:31)
[2022-01-13] MEDS: INSULIN HUMULIN R 100 UNIT/ML 3ML SQ SCH ×4 (05:31→20:51)
[2022-01-13 06:06] LABS: BASOPHILS % (AUTO) 0.5 % (0.0-5.0); EOSINOPHILS % (AUTO) 4.8 % (0.0-8.0); HEMATOCRIT 34.7 % (36-48); LYMPHOCYTES % (AUTO) 20.5 % (21.0-51.0); MEAN CORPUSCULAR HEMOGLOBIN 26.7 pg (27.0-33.0); MEAN CORPUSCULAR HGB CONC 31.4 g/dL (32.0-36.0); MONOCYTES % (AUTO) 7.1 % (3.0-13.0); NEUTROPHILS % (AUTO) 66.6 % (40.0-77.0); PLATELET COUNT (AUTO) 247 K/uL (130-400); RED BLOOD CELL COUNT(AUTO) 4.08 MIL/uL (4.00-5.50); RED CELL DISTRIBUTION WIDTH 14.6 % (11.0-15.5); WHITE BLOOD COUNT (AUTO) 10.2 K/uL (4.8-10.8)
[2022-01-13 06:16] LABS: MAGNESIUM 0.9 mg/dL (1.80-2.40); PHOSPHORUS 4.1 mg/dL (2.5-4.9); POTASSIUM 3.3 mmol/L (3.5-5.1)
[2022-01-13] MEDS ORDERED: SODIUM CHLORIDE 3% FOR INHALATION 4 ML/AMP VIAL.NEB IH ONE (06:16)
[2022-01-13] MEDS: IPRATROPIUM/ALBUTEROL SULFATE 3 ML SOLUTION IH SCH ×3 (06:28→22:01)
[2022-01-13 08:00] VITALS: BP 141/96
[2022-01-13] MEDS ORDERED: NITROGLYCERIN 1GM OINT 1 INCH/1GM TD SCH (08:00)
[2022-01-13] MEDS: FAMOTIDINE 20MG VIAL IV SCH (08:58)
[2022-01-13] MEDS: ASPIRIN 81MG CHEW TAB PO SCH (08:58)
[2022-01-13] MEDS: ENOXAPARIN SODIUM 40 MG/0.4 ML SYRINGE SQ SCH (08:59)
[2022-01-13] MEDS ORDERED: PHARMACY COMMUNICATION MISC SCH (09:30)
[2022-01-13] MEDS ORDERED: POTASSIUM CHLORIDE 10% ELIXIR 20 MEQ/15 ML UDCUP PO PRN (09:30)
[2022-01-13] MEDS ORDERED: COMPOUND PO MISCELLANEOUS 1 EACH MISC MISC PRN (09:30)
[2022-01-13] MEDS: MAGNESIUM 2GM PREMIX 50ML 50 ML IV PRN (10:40)
[2022-01-13] MEDS: LIDO 2% VISC 30ML+MAG/AL/SIMETH 30ML+DICYCLOMINE 20MG 10ML PO SCH ×3 (10:48)
[2022-01-13] MEDS: SODIUM CHLORIDE 3% FOR INHALATION 4 ML/AMP VIAL.NEB IH SCH (11:09)
[2022-01-13 11:45] VITALS: BP 119/66
[2022-01-13] MEDS: SUCRALFATE 1 GM TABLET PO SCH ×3 (13:21→20:45)
[2022-01-13] MEDS: KCL 20 MEQ ERTAB PO PRN ×3 (13:22→17:01)
[2022-01-13] MEDS: 0.9%NACL 1000ML 1,000 ML IV SCH (15:10)
[2022-01-13] MEDS ORDERED: ISOS20TA85 PO (15:22)
[2022-01-13] MEDS ORDERED: EMPA1TAB19 PO (15:22)
[2022-01-13] MEDS ORDERED: FLUT1BLS15 IH (15:22)
[2022-01-13] MEDS ORDERED: SEMA1PEN3 SQ (15:22)
[2022-01-13] MEDS ORDERED: MONT-39 PO (15:22)
[2022-01-13] MEDS ORDERED: LOSA50TA64 PO (15:24)
[2022-01-13 16:12] VITALS: BP 102/62
[2022-01-13] MEDS: NITROGLYCERIN 0.4 MG SL TAB SL PRN (18:48)
[2022-01-13 20:00] VITALS: BP 118/70
[2022-01-13 23:47] VITALS: BP 113/44
[2022-01-14] MEDS: IPRATROPIUM/ALBUTEROL SULFATE 3 ML SOLUTION IH SCH ×3 (00:35→11:13)
[2022-01-14] MEDS: ZOSYN 3.375GM+NS 50ML 50 ML IV SCH (04:11)
[2022-01-14 04:16] VITALS: BP 180/80
[2022-01-14 04:31] LABS: HEMATOCRIT 37.3 % (36-48); MEAN CORPUSCULAR HGB CONC 31.4 g/dL (32.0-36.0); MEAN CORPUSCULAR VOLUME 85.9 fL (79-99); RED BLOOD CELL COUNT(AUTO) 4.34 MIL/uL (4.00-5.50); RED CELL DISTRIBUTION WIDTH 14.4 % (11.0-15.5); WHITE BLOOD COUNT (AUTO) 12.2 K/uL (4.8-10.8)
[2022-01-14 04:46] LABS: MAGNESIUM 1.5 mg/dL (1.80-2.40); PHOSPHORUS 3.2 mg/dL (2.5-4.9); POTASSIUM 4.5 mmol/L (3.5-5.1)
[2022-01-14] MEDS: MAGNESIUM 2GM PREMIX 50ML 50 ML IV PRN ×2 (05:03→12:03)
[2022-01-14 05:04] VITALS: BP 134/67
[2022-01-14] MEDS: INSULIN HUMULIN R 100 UNIT/ML 3ML SQ SCH (06:24)
[2022-01-14 06:39] VITALS: BP 153/74
[2022-01-14] MEDS: SODIUM CHLORIDE 3% FOR INHALATION 4 ML/AMP VIAL.NEB IH SCH (07:10)
[2022-01-14] MEDS: ENOXAPARIN SODIUM 40 MG/0.4 ML SYRINGE SQ SCH (08:07)
[2022-01-14] MEDS: ASPIRIN 81MG CHEW TAB PO SCH (08:07)
[2022-01-14] MEDS: SUCRALFATE 1 GM TABLET PO SCH ×2 (08:07→12:03)
[2022-01-14] MEDS: FAMOTIDINE 20MG VIAL IV SCH (08:07)
[2022-01-14] MEDS: LIDO 2% VISC 30ML+MAG/AL/SIMETH 30ML+DICYCLOMINE 20MG 10ML PO SCH ×3 (08:07)
[2022-01-14 11:25] VITALS: BP 124/54
[2022-01-14] MEDS ORDERED: AZIT250T9 PO (11:31)
[2022-01-15] MEDS ORDERED: LEVO-70 PO (21:06)
== END 2022-01-14 14:25 | disposition home or self-care (01) ==
LOC: EDH 19:26 → INTOOBSV 22:16 → EDHIP 22:16 → 2AH 01-13 04:30
PROVIDERS: ADMIT Internal Medicine; ATTEND Internal Medicine
DX: J96.01 Acute respiratory failure with hypoxia (principal); Z20.822 Contact with and (suspected) exposure to COVID-19; I20.0 Unstable angina; J18.9 Pneumonia, unspecified organism; M94.0 Chondrocostal junction syndrome [Tietze]; J44.1 Chronic obstructive pulmonary disease with (acute) exacerbation; I10 Essential (primary) hypertension; E11.65 Type 2 diabetes mellitus with hyperglycemia; K21.9 Gastro-esophageal reflux disease without esophagitis; G47.33 Obstructive sleep apnea (adult) (pediatric); R07.89 Other chest pain; N39.0 Urinary tract infection, site not specified; B37.9 Candidiasis, unspecified; E78.5 Hyperlipidemia, unspecified; E78.00 Pure hypercholesterolemia, unspecified; J15.0 Pneumonia due to Klebsiella pneumoniae; J44.0 Chronic obstructive pulmonary disease with (acute) lower respiratory infection; J98.11 Atelectasis; D72.829 Elevated white blood cell count, unspecified; Z91.19 Patient's noncompliance with other medical treatment and regimen; Z90.49 Acquired absence of other specified parts of digestive tract; Z79.899 Other long term (current) drug therapy; Z98.890 Other specified postprocedural states
CPT/HCPCS: 94640 ×9; 96361 ×3; 96375 ×2; 99285; 82550; 84484 ×5; 80053; 82803; 83880 ×2; 85025 ×2; 87040 ×2; 81001; 36415 ×3; 71045 ×2; 93005 ×2; 36600; 94664; 94760 ×2; 96372 ×2; 96365; 96366 ×2; 96367; 83036; 83735 ×3; 84100 ×2; 80048 ×2; 87071; 87077; 87186; 87205; 87804 ×2; 82948 ×5; 87635; 71250; 96376; 85027; J0696; J3475 ×3; J3490 ×2; J2543 ×4; J1650 ×2; G0378 ×4; C8929; 93306; 93356

== ENCOUNTER 2022-03-20 16:24 | Emergency (ER) | payer OTHER, MEDICARE ==
[~2022-03-20 16:24] MED LIST changes: -A20IH1 IH; -ACET-2079 PO; -APIX2.5T PO; +AZIT250T9 PO; -BUDE10.22 IH; +EMPA1TAB19 PO; -EMPA25TA PO; +FLUT1BLS15 IH; +ISOS20TA85 PO; +LEVO-70 PO; +MONT-39 PO; +SEMA1PEN3 SQ
[2022-03-20 16:58] LABS: BASOPHILS % (AUTO) 0.2 % (0.0-5.0); EOSINOPHILS % (AUTO) 0.5 % (0.0-8.0); HEMATOCRIT 39.1 % (36-48); LYMPHOCYTES % (AUTO) 3.7 % (21.0-51.0); MEAN CORPUSCULAR HEMOGLOBIN 26.8 pg (27.0-33.0); MEAN CORPUSCULAR VOLUME 83.9 fL (79-99); MONOCYTES % (AUTO) 3.5 % (3.0-13.0); NEUTROPHILS % (AUTO) 91.7 % (40.0-77.0); PLATELET COUNT (AUTO) 285 K/uL (130-400); RED BLOOD CELL COUNT(AUTO) 4.66 MIL/uL (4.00-5.50); RED CELL DISTRIBUTION WIDTH 14.6 % (11.0-15.5); WHITE BLOOD COUNT (AUTO) 13.5 K/uL (4.8-10.8)
[2022-03-20] MEDS ORDERED: PANTOPRAZOLE 40 MG/VIAL IVP STA (17:03)
[2022-03-20 17:07] LABS: POTASSIUM 3.1 mmol/L (3.5-5.1)
[2022-03-20 17:20] LABS: ALBUMIN 3.2 g/dL (3.5-5.0)
[2022-03-20 20:05] LABS: APPEARANCE,URINE CLOUDY (CLEAR); BILIRUBIN,URINE NEGATIVE (NEGATIVE); COLOR,URINE YELLOW (YELLOW); GLUCOSE, URINE (UA) >=1000 mg/dL (NEGATIVE); KETONES,URINE NEGATIVE (NEGATIVE); LEUKOCYTE ESTERASE ,URINE 25 Leu/uL (NEGATIVE); NITRATE,URINE NEGATIVE (NEGATIVE); OCCULT BLOOD,URINE NEGATIVE (NEGATIVE); PH,URINE 6.5 (5.0-8.0); PROTEIN,URINE 30 mg/dL (NEGATIVE); UROBILINOGEN,URINE 0.2 mg/dL (0.2-1.0)
[2022-03-20 20:22] LABS: BACTERIA,URINE Many /HPF (None Seen); RBC,URINE None Seen /HPF (0-1)
[2022-03-20 20:23] LABS: SQUAMOUS EPITHELIAL CELL,UR 0-2 /HPF (0-2)
[2022-03-20] MEDS ORDERED: ONDA-104 PO (20:47)
[2022-03-20] MEDS ORDERED: DIPH1TAB PO (20:47)
[2022-03-20 20:59] VITALS: BP 126/62
== END 2022-03-20 21:08 | disposition home or self-care (01) ==
LOC: EDH 16:24
DX: K52.9 Noninfective gastroenteritis and colitis, unspecified (principal); E87.6 Hypokalemia; K43.9 Ventral hernia without obstruction or gangrene; D25.9 Leiomyoma of uterus, unspecified; K57.20 Diverticulitis of large intestine with perforation and abscess without bleeding; E11.9 Type 2 diabetes mellitus without complications; E66.9 Obesity, unspecified; E78.00 Pure hypercholesterolemia, unspecified; I10 Essential (primary) hypertension; Z20.822 Contact with and (suspected) exposure to COVID-19; Z79.899 Other long term (current) drug therapy
CPT/HCPCS: 99285; 84484; 80053; 83690; 85025; 87077; 87088; 87186; 87804 ×2; 81001; 36415; 87635; 74176; 96374; 93005; C9803; C9113

== ENCOUNTER 2022-07-27 10:20 | Inpatient (IN) | payer OTHER, MEDICARE ==
[~2022-07-27] VITALS: Ht 162.6 cm; Wt 102.4 kg
[~2022-07-27 10:20] MED LIST changes: +DIPH1TAB PO; +ONDA-104 PO
[2022-07-27 10:50] LABS: BASOPHILS % (AUTO) 0.2 % (0.0-5.0); HEMATOCRIT 37.4 % (36-48); LYMPHOCYTES % (AUTO) 1.7 % (21.0-51.0); MEAN CORPUSCULAR HEMOGLOBIN 26.9 pg (27.0-33.0); MEAN CORPUSCULAR HGB CONC 33.7 g/dL (32.0-36.0); MEAN CORPUSCULAR VOLUME 79.9 fL (79-99); MONOCYTES % (AUTO) 5.3 % (3.0-13.0); NEUTROPHILS % (AUTO) 92.1 % (40.0-77.0); PLATELET COUNT (AUTO) 280 K/uL (130-400); RED BLOOD CELL COUNT(AUTO) 4.68 MIL/uL (4.00-5.50); RED CELL DISTRIBUTION WIDTH 14.4 % (11.0-15.5); WHITE BLOOD COUNT (AUTO) 24.2 K/uL (4.8-10.8)
[2022-07-27 10:59] LABS: POTASSIUM 3.4 mmol/L (3.5-5.1)
[2022-07-27 11:04] LABS: ALBUMIN 3.2 g/dL (3.5-5.0); MAGNESIUM 0.5 mg/dL (1.80-2.40); TOTAL PROTEIN, SERUM 7.1 g/dL (6.0-8.3)
[2022-07-27] MEDS ORDERED: ZOSYN 3.375GM +NS 50ML IVPB STA (11:09)
[2022-07-27 11:19] LABS: APPEARANCE,URINE CLEAR (CLEAR); BILIRUBIN,URINE NEGATIVE (NEGATIVE); COLOR,URINE YELLOW (YELLOW); GLUCOSE, URINE (UA) >=1000 mg/dL (NEGATIVE); KETONES,URINE NEGATIVE (NEGATIVE); LEUKOCYTE ESTERASE ,URINE NEGATIVE Leu/uL (NEGATIVE); NITRATE,URINE NEGATIVE (NEGATIVE); OCCULT BLOOD,URINE TRACE-INTACT (NEGATIVE); PROTEIN,URINE TRACE mg/dL (NEGATIVE); UROBILINOGEN,URINE 0.2 mg/dL (0.2-1.0)
[2022-07-27 11:29] LABS: SQUAMOUS EPITHELIAL CELL,UR Few /HPF (0-2)
[2022-07-27 11:30] LABS: BACTERIA,URINE Rare /HPF (None Seen); RBC,URINE 0-1 /HPF (0-1); WBC,URINE None Seen /HPF (0-1)
[2022-07-27] MEDS ORDERED: ACETAMINOPHEN 325 MG TAB PO ONE (12:00)
[2022-07-27] MEDS ORDERED: MAGNESIUM 2GM PREMIX 50ML 50 ML IV ONE ×2 (12:00→16:13)
[2022-07-27] MEDS ORDERED: LIDOCAINE HCL 1% 20 ML VIAL ONE (14:55)
[2022-07-27] MEDS ORDERED: VANCOMYCIN PROTOCOL PER PHARMACY IV SCH (15:30)
[2022-07-27] MEDS ORDERED: DOXYCYCLINE 100MG+NS 250ML IV SCH (15:30)
[2022-07-27] MEDS ORDERED: COMPOUND IV REFRIGERATED 1 EACH IVSOLN MISC PRN (16:00)
[2022-07-27] MEDS: 0.9%NACL 1000ML 1,000 ML IV SCH (16:16)
[2022-07-27] MEDS ORDERED: AMPICILLIN 2GM+NS 100ML IV SCH (16:30)
[2022-07-27 16:44] LABS: CREATININE 0.9 mg/dL (0.5-1.5); POTASSIUM 3.1 mmol/L (3.5-5.1)
[2022-07-27] MEDS ORDERED: AMPICILLIN 2GM+NS 100ML 100 ML IV SCH (17:00)
[2022-07-27] MEDS: VANCOMYCIN 1.5 GM/250 ML BAG 250 ML IV SCH (17:12)
[2022-07-27] MEDS: CEFEPIME HCL 2 GM VIAL IVP SCH (17:12)
[2022-07-27] MEDS: IPRATROPIUM/ALBUTEROL SULFATE 3 ML SOLUTION IH SCH (18:00)
[2022-07-27] MEDS ORDERED: IPRATROPIUM 0.5 MG/2.5 ML INH IH ONE ×2 (18:35→23:13)
[2022-07-27] MEDS ORDERED: ALBUTEROL 0.083% 2.5 MG/3 ML INH IH ONE ×2 (18:35→22:56)
[2022-07-27] MEDS ORDERED: ZOSYN 3.375GM +NS 50ML IVPB SCH (20:00)
[2022-07-27] MEDS ORDERED: 0.9%NACL 50ML IV SCH (20:00)
[2022-07-27] MEDS: INSULIN HUMULIN R 100 UNIT/ML 3ML SQ SCH (21:00)
[2022-07-27] MEDS ORDERED: BISACODYL 10 MG SUPP.RECT RC ONE (21:00)
[2022-07-27] MEDS: ATORVASTATIN 40 MG TABLET PO SCH (21:02)
[2022-07-27] MEDS: MAGNESIUM 2GM PREMIX 50ML 50 ML IV SCH (21:02)
[2022-07-27] MEDS: AMPICILLIN 2GM+NS 100ML 100 ML IV SCH (21:03)
[2022-07-27 21:25] LABS: CREATININE 0.9 mg/dL (0.5-1.5); MAGNESIUM 1.6 mg/dL (1.80-2.40)
[2022-07-27 21:28] LABS: INR 0.96 (0.85-1.15); PROTHROMBIN TIME 10.5 SEC (9.6-11.6)
[2022-07-27 21:29] LABS: PARTIAL THROMBOPLASTIN TIME 28.4 SEC (26.3-35.5)
[2022-07-27 21:30] VITALS: BP 145/73
[2022-07-27 21:34] LABS: POTASSIUM 2.9 mmol/L (3.5-5.1)
[2022-07-27] MEDS ORDERED: LIDOCAINE HCL-MPF 1% 2ML VIAL IV PRN (22:00)
[2022-07-27] MEDS ORDERED: POTASSIUM CHLORIDE 20MEQ/100ML 100 ML IV PRN (22:00)
[2022-07-27] MEDS ORDERED: ACETAMINOPHEN 325 MG TAB PO PRN (22:00)
[2022-07-27] MEDS ORDERED: POTASSIUM CHLORIDE 20MEQ/100ML 100 ML IV ONE (22:11)
[2022-07-27] MEDS: ISOSORBIDE MONONITRATE 20 MG TABLET PO SCH (22:18)
[2022-07-27 23:00] VITALS: BP 134/64
[2022-07-28] MEDS: POTASSIUM CHLORIDE 10% ELIXIR 20 MEQ/15 ML UDCUP PO PRN ×3 (00:25→04:22)
[2022-07-28] MEDS: CEFEPIME HCL 2 GM VIAL IVP SCH ×4 (00:26→23:48)
[2022-07-28] MEDS: AMPICILLIN 2GM+NS 100ML 100 ML IV SCH ×4 (00:26→12:13)
[2022-07-28] MEDS: 0.9%NACL 1000ML 1,000 ML IV SCH ×3 (00:27→21:53)
[2022-07-28 04:48] VITALS: BP 146/78
[2022-07-28 05:23] LABS: MAGNESIUM 1.5 mg/dL (1.80-2.40); POTASSIUM 3.9 mmol/L (3.5-5.1)
[2022-07-28] MEDS: IPRATROPIUM/ALBUTEROL SULFATE 3 ML SOLUTION IH SCH ×4 (06:00→23:30)
[2022-07-28] MEDS ORDERED: ALBUTEROL 0.083% 2.5 MG/3 ML INH IH ONE ×2 (06:20→18:29)
[2022-07-28] MEDS: INSULIN HUMULIN R 100 UNIT/ML 3ML SQ SCH ×3 (06:36→21:08)
[2022-07-28] MEDS: MAGNESIUM 2GM PREMIX 50ML 50 ML IV SCH (06:39)
[2022-07-28 07:05] LABS: BASOPHILS % (AUTO) 0.3 % (0.0-5.0); EOSINOPHILS % (AUTO) 0.7 % (0.0-8.0); HEMATOCRIT 34.1 % (36-48); MEAN CORPUSCULAR HEMOGLOBIN 26.2 pg (27.0-33.0); MEAN CORPUSCULAR HGB CONC 31.4 g/dL (32.0-36.0); MEAN CORPUSCULAR VOLUME 83.6 fL (79-99); MONOCYTES % (AUTO) 6.7 % (3.0-13.0); NEUTROPHILS % (AUTO) 81.7 % (40.0-77.0); PLATELET COUNT (AUTO) 247 K/uL (130-400); RED BLOOD CELL COUNT(AUTO) 4.08 MIL/uL (4.00-5.50); RED CELL DISTRIBUTION WIDTH 14.6 % (11.0-15.5); WHITE BLOOD COUNT (AUTO) 13.5 K/uL (4.8-10.8)
[2022-07-28 07:27] LABS: ALBUMIN 2.7 g/dL (3.5-5.0); POTASSIUM 3.9 mmol/L (3.5-5.1); TOTAL PROTEIN, SERUM 6.2 g/dL (6.0-8.3)
[2022-07-28 08:00] VITALS: BP 127/55
[2022-07-28] MEDS: HOME MEDICATION 1 EACH IH SCH (09:00)
[2022-07-28] MEDS: LOSARTAN 50 MG TABLET PO SCH (09:45)
[2022-07-28] MEDS: CITALOPRAM 20 MG TABLET PO SCH (09:45)
[2022-07-28] MEDS: PRAMIPEXOLE DI-HCL 0.25 MG TABLET PO SCH (09:45)
[2022-07-28] MEDS: ISOSORBIDE MONONITRATE 20 MG TABLET PO SCH ×2 (09:45→21:03)
[2022-07-28] MEDS: MONTELUKAST SODIUM 10 MG TAB PO SCH (09:45)
[2022-07-28 12:00] VITALS: BP 104/63
[2022-07-28] MEDS: ACETAMINOPHEN 325 MG TAB PO PRN ×2 (14:01→22:32)
[2022-07-28] MEDS: CLINDAMYCIN 150 MG CAP PO SCH ×2 (15:00→22:24)
[2022-07-28] MEDS ORDERED: IOHEXOL 350 MG/ML 100ML INFUS..BTL IV ONE (15:34)
[2022-07-28 16:00] VITALS: BP 112/54
[2022-07-28] MEDS ORDERED: VANCOMYCIN PROTOCOL PER PHARMACY IV SCH (16:00)
[2022-07-28] MEDS: VANCOMYCIN 1.5 GM/250 ML BAG 250 ML IV SCH (16:00)
[2022-07-28] MEDS ORDERED: IPRATROPIUM 0.5 MG/2.5 ML INH IH ONE ×2 (18:30→23:00)
[2022-07-28 20:35] VITALS: BP 116/53
[2022-07-28] MEDS: ATORVASTATIN 40 MG TABLET PO SCH (21:03)
[2022-07-28] MEDS ORDERED: ALBUTEROL 0.042% 1.25MG/3ML IH ONE ×2 (23:00)
[2022-07-28 23:44] VITALS: BP 141/50
[2022-07-29 04:15] VITALS: BP 125/57
[2022-07-29 05:00] LABS: BASOPHILS % (AUTO) 0.4 % (0.0-5.0); EOSINOPHILS % (AUTO) 5.4 % (0.0-8.0); HEMATOCRIT 31.4 % (36-48); LYMPHOCYTES % (AUTO) 14.4 % (21.0-51.0); MEAN CORPUSCULAR HEMOGLOBIN 26.6 pg (27.0-33.0); MEAN CORPUSCULAR HGB CONC 31.2 g/dL (32.0-36.0); MEAN CORPUSCULAR VOLUME 85.1 fL (79-99); MONOCYTES % (AUTO) 9.2 % (3.0-13.0); NEUTROPHILS % (AUTO) 70.1 % (40.0-77.0); PLATELET COUNT (AUTO) 229 K/uL (130-400); RED BLOOD CELL COUNT(AUTO) 3.69 MIL/uL (4.00-5.50); RED CELL DISTRIBUTION WIDTH 14.8 % (11.0-15.5); WHITE BLOOD COUNT (AUTO) 9.7 K/uL (4.8-10.8)
[2022-07-29 05:14] LABS: ALBUMIN 2.3 g/dL (3.5-5.0); MAGNESIUM 1.8 mg/dL (1.80-2.40); POTASSIUM 3.5 mmol/L (3.5-5.1); TOTAL PROTEIN, SERUM 5.7 g/dL (6.0-8.3)
[2022-07-29] MEDS: INSULIN HUMULIN R 100 UNIT/ML 3ML SQ SCH ×4 (06:27→22:05)
[2022-07-29] MEDS: CLINDAMYCIN 150 MG CAP PO SCH ×3 (06:44→22:08)
[2022-07-29] MEDS: IPRATROPIUM/ALBUTEROL SULFATE 3 ML SOLUTION IH SCH ×4 (07:00→23:25)
[2022-07-29 08:00] VITALS: BP 117/54
[2022-07-29] MEDS: ACETAMINOPHEN 325 MG TAB PO PRN (08:27)
[2022-07-29] MEDS: HOME MEDICATION 1 EACH IH SCH (09:00)
[2022-07-29] MEDS: CEFEPIME HCL 2 GM VIAL IVP SCH ×3 (09:21→23:30)
[2022-07-29] MEDS: ISOSORBIDE MONONITRATE 20 MG TABLET PO SCH ×2 (09:22→22:08)
[2022-07-29] MEDS: MONTELUKAST SODIUM 10 MG TAB PO SCH (09:22)
[2022-07-29] MEDS: PRAMIPEXOLE DI-HCL 0.25 MG TABLET PO SCH (09:23)
[2022-07-29] MEDS: CITALOPRAM 20 MG TABLET PO SCH (09:23)
[2022-07-29] MEDS: LOSARTAN 50 MG TABLET PO SCH (09:25)
[2022-07-29] MEDS: 0.9%NACL 1000ML 1,000 ML IV SCH (09:26)
[2022-07-29] MEDS ORDERED: ALBUTEROL 0.042% 1.25MG/3ML IH ONE (11:00)
[2022-07-29] MEDS ORDERED: IPRATROPIUM 0.5 MG/2.5 ML INH IH ONE (11:07)
[2022-07-29 12:00] VITALS: BP 97/46
[2022-07-29] MEDS ORDERED: HYDROMORPHONE 0.5 MG SYG (0.5MG/0.5ML) ONE (12:14)
[2022-07-29] MEDS ORDERED: HYDROMORPHONE 0.5 MG SYG (0.5MG/0.5ML) IVP ONE (12:30)
[2022-07-29 16:00] VITALS: BP 146/70
[2022-07-29] MEDS: KCL 20 MEQ ERTAB PO PRN ×2 (16:20→18:31)
[2022-07-29] MEDS: VANCOMYCIN 1.5 GM/250 ML BAG 250 ML IV SCH (16:20)
[2022-07-29] MEDS: MAGNESIUM 2GM PREMIX 50ML 50 ML IV SCH (19:26)
[2022-07-29 20:00] VITALS: BP 146/77
[2022-07-29] MEDS: ATORVASTATIN 40 MG TABLET PO SCH (22:07)
[2022-07-30] VITALS (7 sets, daily range): BP systolic 125–149; BP diastolic 62–75
[2022-07-30 04:35] LABS: BASOPHILS % (AUTO) 0.5 % (0.0-5.0); EOSINOPHILS % (AUTO) 5.9 % (0.0-8.0); HEMATOCRIT 32.3 % (36-48); LYMPHOCYTES % (AUTO) 16.1 % (21.0-51.0); MEAN CORPUSCULAR HEMOGLOBIN 26.5 pg (27.0-33.0); MEAN CORPUSCULAR HGB CONC 30.7 g/dL (32.0-36.0); MEAN CORPUSCULAR VOLUME 86.4 fL (79-99); MONOCYTES % (AUTO) 8.5 % (3.0-13.0); NEUTROPHILS % (AUTO) 68.4 % (40.0-77.0); PLATELET COUNT (AUTO) 237 K/uL (130-400); RED BLOOD CELL COUNT(AUTO) 3.74 MIL/uL (4.00-5.50); RED CELL DISTRIBUTION WIDTH 14.9 % (11.0-15.5); WHITE BLOOD COUNT (AUTO) 11.1 K/uL (4.8-10.8)
[2022-07-30 04:57] LABS: ALBUMIN 2.4 g/dL (3.5-5.0); POTASSIUM 4.7 mmol/L (3.5-5.1); TOTAL PROTEIN, SERUM 6.1 g/dL (6.0-8.3)
[2022-07-30] MEDS: INSULIN HUMULIN R 100 UNIT/ML 3ML SQ SCH ×4 (06:27→19:50)
[2022-07-30] MEDS: IPRATROPIUM/ALBUTEROL SULFATE 3 ML SOLUTION IH SCH ×4 (06:47→23:28)
[2022-07-30] MEDS: CEFEPIME HCL 2 GM VIAL IVP SCH ×3 (08:37→23:08)
[2022-07-30] MEDS: MONTELUKAST SODIUM 10 MG TAB PO SCH (08:38)
[2022-07-30] MEDS: LOSARTAN 50 MG TABLET PO SCH (08:38)
[2022-07-30] MEDS: PRAMIPEXOLE DI-HCL 0.25 MG TABLET PO SCH (08:38)
[2022-07-30] MEDS: CITALOPRAM 20 MG TABLET PO SCH (08:38)
[2022-07-30] MEDS: CLINDAMYCIN 150 MG CAP PO SCH ×3 (08:38→23:08)
[2022-07-30] MEDS: ISOSORBIDE MONONITRATE 20 MG TABLET PO SCH ×2 (08:38→19:51)
[2022-07-30] MEDS: HOME MEDICATION 1 EACH IH SCH (08:50)
[2022-07-30] MEDS: VANCOMYCIN 1.5 GM/250 ML BAG 250 ML IV SCH (17:54)
[2022-07-30] MEDS: ATORVASTATIN 40 MG TABLET PO SCH (19:51)
[2022-07-31 04:08] VITALS: BP 143/71
[2022-07-31 04:45] LABS: BASOPHILS % (AUTO) 0.4 % (0.0-5.0); EOSINOPHILS % (AUTO) 6.6 % (0.0-8.0); HEMATOCRIT 31.8 % (36-48); LYMPHOCYTES % (AUTO) 16.5 % (21.0-51.0); MEAN CORPUSCULAR HEMOGLOBIN 26.6 pg (27.0-33.0); MEAN CORPUSCULAR HGB CONC 31.4 g/dL (32.0-36.0); MEAN CORPUSCULAR VOLUME 84.6 fL (79-99); MONOCYTES % (AUTO) 6.8 % (3.0-13.0); NEUTROPHILS % (AUTO) 68.9 % (40.0-77.0); PLATELET COUNT (AUTO) 253 K/uL (130-400); RED BLOOD CELL COUNT(AUTO) 3.76 MIL/uL (4.00-5.50); RED CELL DISTRIBUTION WIDTH 14.7 % (11.0-15.5); WHITE BLOOD COUNT (AUTO) 8.5 K/uL (4.8-10.8)
[2022-07-31 05:07] LABS: ALBUMIN 2.5 g/dL (3.5-5.0); CREATININE 0.9 mg/dL (0.5-1.5); MAGNESIUM 1.3 mg/dL (1.80-2.40); POTASSIUM 4.2 mmol/L (3.5-5.1); TOTAL PROTEIN, SERUM 6.1 g/dL (6.0-8.3)
[2022-07-31] MEDS: MAGNESIUM 2GM PREMIX 50ML 50 ML IV SCH (05:26)
[2022-07-31] MEDS: CLINDAMYCIN 150 MG CAP PO SCH ×3 (05:26→23:18)
[2022-07-31] MEDS: INSULIN HUMULIN R 100 UNIT/ML 3ML SQ SCH ×4 (05:39→20:18)
[2022-07-31] MEDS: IPRATROPIUM/ALBUTEROL SULFATE 3 ML SOLUTION IH SCH ×4 (06:18→23:57)
[2022-07-31 08:00] VITALS: BP 149/74
[2022-07-31] MEDS: VANCOMYCIN 1.5 GM/250 ML BAG 250 ML IV SCH (08:54)
[2022-07-31] MEDS: CEFEPIME HCL 2 GM VIAL IVP SCH ×3 (08:54→23:18)
[2022-07-31] MEDS: CITALOPRAM 20 MG TABLET PO SCH (08:55)
[2022-07-31] MEDS: MONTELUKAST SODIUM 10 MG TAB PO SCH (08:55)
[2022-07-31] MEDS: ISOSORBIDE MONONITRATE 20 MG TABLET PO SCH ×2 (08:55→20:17)
[2022-07-31] MEDS: LOSARTAN 50 MG TABLET PO SCH (08:55)
[2022-07-31] MEDS: HOME MEDICATION 1 EACH IH SCH (08:56)
[2022-07-31] MEDS: PRAMIPEXOLE DI-HCL 0.25 MG TABLET PO SCH (08:56)
[2022-07-31 11:42] VITALS: BP 129/57
[2022-07-31] MEDS ORDERED: MAG/ALUM/SIMETH 30 ML UDCUP PO SCH (13:00)
[2022-07-31 15:51] VITALS: BP 142/70
[2022-07-31] MEDS ORDERED: LIDOCAINE HCL 2% VISCOUS 15 ML UDCUP PO PRN (16:00)
[2022-07-31] MEDS ORDERED: DICYCLOMINE HCL 10 MG/5 ML ML PO ONE (16:00)
[2022-07-31] MEDS ORDERED: MAG/ALUM/SIMETH 30 ML UDCUP PO ONE (16:00)
[2022-07-31] MEDS ORDERED: LIDO 2% VISC 30ML+MAG/AL/SIMETH 30ML+DICYCLOMINE 20MG 10ML PO PRN ×3 (16:30)
[2022-07-31] MEDS ORDERED: PHARMACY COMMUNICATION MISC SCH (16:30)
[2022-07-31] MEDS ORDERED: COMPOUND PO MISCELLANEOUS 1 EACH MISC MISC PRN (16:30)
[2022-07-31] MEDS: ATORVASTATIN 40 MG TABLET PO SCH (20:17)
[2022-07-31 20:38] VITALS: BP 130/70
[2022-07-31 22:49] VITALS: BP 132/66
[2022-08-01 04:11] VITALS: BP 181/93
[2022-08-01 05:02] VITALS: BP 134/70
[2022-08-01] MEDS: INSULIN HUMULIN R 100 UNIT/ML 3ML SQ SCH ×4 (05:53→21:24)
[2022-08-01] MEDS: CLINDAMYCIN 150 MG CAP PO SCH ×2 (06:03→15:15)
[2022-08-01] MEDS: IPRATROPIUM/ALBUTEROL SULFATE 3 ML SOLUTION IH SCH ×3 (06:16→19:01)
[2022-08-01 08:00] VITALS: BP 154/62
[2022-08-01] MEDS: HOME MEDICATION 1 EACH IH SCH (09:00)
[2022-08-01 09:04] LABS: BASOPHILS % (AUTO) 0.4 % (0.0-5.0); EOSINOPHILS % (AUTO) 5.7 % (0.0-8.0); HEMATOCRIT 32.4 % (36-48); LYMPHOCYTES % (AUTO) 12.6 % (21.0-51.0); MEAN CORPUSCULAR HEMOGLOBIN 26.4 pg (27.0-33.0); MEAN CORPUSCULAR HGB CONC 30.6 g/dL (32.0-36.0); MEAN CORPUSCULAR VOLUME 86.4 fL (79-99); MONOCYTES % (AUTO) 6.3 % (3.0-13.0); NEUTROPHILS % (AUTO) 74.1 % (40.0-77.0); PLATELET COUNT (AUTO) 245 K/uL (130-400); RED BLOOD CELL COUNT(AUTO) 3.75 MIL/uL (4.00-5.50); RED CELL DISTRIBUTION WIDTH 14.6 % (11.0-15.5); WHITE BLOOD COUNT (AUTO) 9.2 K/uL (4.8-10.8)
[2022-08-01] MEDS: CEFEPIME HCL 2 GM VIAL IVP SCH ×2 (09:10→17:31)
[2022-08-01] MEDS: ISOSORBIDE MONONITRATE 20 MG TABLET PO SCH ×2 (09:10→19:53)
[2022-08-01] MEDS: PRAMIPEXOLE DI-HCL 0.25 MG TABLET PO SCH (09:10)
[2022-08-01] MEDS: LOSARTAN 50 MG TABLET PO SCH (09:11)
[2022-08-01] MEDS: CITALOPRAM 20 MG TABLET PO SCH (09:11)
[2022-08-01] MEDS: MONTELUKAST SODIUM 10 MG TAB PO SCH (09:11)
[2022-08-01 09:23] LABS: ALBUMIN 2.5 g/dL (3.5-5.0); CREATININE 0.9 mg/dL (0.5-1.5); POTASSIUM 3.8 mmol/L (3.5-5.1); TOTAL PROTEIN, SERUM 6.2 g/dL (6.0-8.3)
[2022-08-01] MEDS: VANCOMYCIN 1.5 GM/250 ML BAG 250 ML IV SCH (10:58)
[2022-08-01] MEDS ORDERED: MAGNESIUM 4GM PREMIX 100ML 100 ML IV PRN (11:00)
[2022-08-01 11:56] VITALS: BP 134/66
[2022-08-01] MEDS: MAGNESIUM 2GM PREMIX 50ML 50 ML IV SCH (15:17)
[2022-08-01 16:00] VITALS: BP 132/62
[2022-08-01] MEDS: ATORVASTATIN 40 MG TABLET PO SCH (19:53)
[2022-08-01 20:00] VITALS: BP 148/56
[2022-08-02] VITALS: BP 160/72
[2022-08-02] MEDS: IPRATROPIUM/ALBUTEROL SULFATE 3 ML SOLUTION IH SCH ×5 (00:13→23:34)
[2022-08-02] MEDS: CEFEPIME HCL 2 GM VIAL IVP SCH ×4 (00:22→23:21)
[2022-08-02] MEDS: CLINDAMYCIN 150 MG CAP PO SCH ×4 (00:22→23:21)
[2022-08-02 04:00] VITALS: BP_SYST 135; BP_SYST 149; BP_DIAS 55; BP_DIAS 86
[2022-08-02 05:06] LABS: BASOPHILS % (AUTO) 0.6 % (0.0-5.0); EOSINOPHILS % (AUTO) 5.9 % (0.0-8.0); HEMATOCRIT 33.5 % (36-48); LYMPHOCYTES % (AUTO) 14.8 % (21.0-51.0); MEAN CORPUSCULAR HEMOGLOBIN 26.7 pg (27.0-33.0); MEAN CORPUSCULAR VOLUME 85.9 fL (79-99); MONOCYTES % (AUTO) 6.7 % (3.0-13.0); PLATELET COUNT (AUTO) 273 K/uL (130-400); RED CELL DISTRIBUTION WIDTH 14.6 % (11.0-15.5); WHITE BLOOD COUNT (AUTO) 10.9 K/uL (4.8-10.8)
[2022-08-02 05:34] LABS: ALBUMIN 2.6 g/dL (3.5-5.0); CREATININE 0.9 mg/dL (0.5-1.5); MAGNESIUM 1.2 mg/dL (1.80-2.40); POTASSIUM 4.4 mmol/L (3.5-5.1); TOTAL PROTEIN, SERUM 6.4 g/dL (6.0-8.3)
[2022-08-02] MEDS: MAGNESIUM 2GM PREMIX 50ML 50 ML IV SCH ×2 (05:53→09:22)
[2022-08-02] MEDS: INSULIN HUMULIN R 100 UNIT/ML 3ML SQ SCH ×4 (05:59→21:33)
[2022-08-02 08:13] VITALS: BP 150/66
[2022-08-02] MEDS: HOME MEDICATION 1 EACH IH SCH (09:00)
[2022-08-02] MEDS: VANCOMYCIN 1.5 GM/250 ML BAG 250 ML IV SCH (09:22)
[2022-08-02] MEDS: LOSARTAN 50 MG TABLET PO SCH (09:23)
[2022-08-02] MEDS: ISOSORBIDE MONONITRATE 20 MG TABLET PO SCH ×2 (09:23→19:56)
[2022-08-02] MEDS: CITALOPRAM 20 MG TABLET PO SCH (09:23)
[2022-08-02] MEDS: PRAMIPEXOLE DI-HCL 0.25 MG TABLET PO SCH (09:23)
[2022-08-02] MEDS: MONTELUKAST SODIUM 10 MG TAB PO SCH (09:23)
[2022-08-02 12:15] VITALS: BP 135/59
[2022-08-02 16:48] VITALS: BP 155/75
[2022-08-02] MEDS: ATORVASTATIN 40 MG TABLET PO SCH (19:56)
[2022-08-02 20:00] VITALS: BP 152/60
[2022-08-03] VITALS (7 sets, daily range): BP systolic 125–152; BP diastolic 49–71
[2022-08-03 05:08] LABS: BASOPHILS % (AUTO) 0.6 % (0.0-5.0); EOSINOPHILS % (AUTO) 5.9 % (0.0-8.0); HEMATOCRIT 32.7 % (36-48); MEAN CORPUSCULAR HEMOGLOBIN 26.8 pg (27.0-33.0); MEAN CORPUSCULAR HGB CONC 31.2 g/dL (32.0-36.0); MEAN CORPUSCULAR VOLUME 85.8 fL (79-99); MONOCYTES % (AUTO) 6.4 % (3.0-13.0); NEUTROPHILS % (AUTO) 71.2 % (40.0-77.0); PLATELET COUNT (AUTO) 278 K/uL (130-400); RED BLOOD CELL COUNT(AUTO) 3.81 MIL/uL (4.00-5.50); RED CELL DISTRIBUTION WIDTH 14.6 % (11.0-15.5); WHITE BLOOD COUNT (AUTO) 11.7 K/uL (4.8-10.8)
[2022-08-03 05:28] LABS: ALBUMIN 2.6 g/dL (3.5-5.0); CREATININE 0.9 mg/dL (0.5-1.5); MAGNESIUM 1.4 mg/dL (1.80-2.40); POTASSIUM 4.3 mmol/L (3.5-5.1); TOTAL PROTEIN, SERUM 6.2 g/dL (6.0-8.3)
[2022-08-03] MEDS: CLINDAMYCIN 150 MG CAP PO SCH ×3 (05:53→23:35)
[2022-08-03] MEDS: INSULIN HUMULIN R 100 UNIT/ML 3ML SQ SCH ×4 (06:22→21:25)
[2022-08-03] MEDS: IPRATROPIUM/ALBUTEROL SULFATE 3 ML SOLUTION IH SCH ×4 (06:27→23:48)
[2022-08-03] MEDS: MAGNESIUM 2GM PREMIX 50ML 50 ML IV SCH (06:45)
[2022-08-03] MEDS: HOME MEDICATION 1 EACH IH SCH (09:00)
[2022-08-03] MEDS: ISOSORBIDE MONONITRATE 20 MG TABLET PO SCH ×2 (09:10→20:05)
[2022-08-03] MEDS: LOSARTAN 50 MG TABLET PO SCH (09:10)
[2022-08-03] MEDS: MONTELUKAST SODIUM 10 MG TAB PO SCH (09:10)
[2022-08-03] MEDS: CITALOPRAM 20 MG TABLET PO SCH (09:10)
[2022-08-03] MEDS: PRAMIPEXOLE DI-HCL 0.25 MG TABLET PO SCH (09:11)
[2022-08-03] MEDS: CEFEPIME HCL 2 GM VIAL IVP SCH ×3 (09:11→23:34)
[2022-08-03] MEDS: VANCOMYCIN 1.5 GM/250 ML BAG 250 ML IV SCH (09:12)
[2022-08-03] MEDS: ATORVASTATIN 40 MG TABLET PO SCH (20:05)
[2022-08-04 04:40] VITALS: BP 159/74
[2022-08-04] MEDS: INSULIN HUMULIN R 100 UNIT/ML 3ML SQ SCH ×3 (05:54→15:46)
[2022-08-04] MEDS: CLINDAMYCIN 150 MG CAP PO SCH ×2 (06:26→15:34)
[2022-08-04] MEDS: IPRATROPIUM/ALBUTEROL SULFATE 3 ML SOLUTION IH SCH ×2 (06:37→11:07)
[2022-08-04 07:58] VITALS: BP 126/44
[2022-08-04] MEDS: MAGNESIUM 2GM PREMIX 50ML 50 ML IV SCH (08:11)
[2022-08-04] MEDS: LOSARTAN 50 MG TABLET PO SCH (08:47)
[2022-08-04] MEDS: ISOSORBIDE MONONITRATE 20 MG TABLET PO SCH (08:47)
[2022-08-04] MEDS: PRAMIPEXOLE DI-HCL 0.25 MG TABLET PO SCH (08:47)
[2022-08-04] MEDS: MONTELUKAST SODIUM 10 MG TAB PO SCH (08:47)
[2022-08-04] MEDS: CITALOPRAM 20 MG TABLET PO SCH (08:47)
[2022-08-04] MEDS: CEFEPIME HCL 2 GM VIAL IVP SCH ×2 (08:47→15:34)
[2022-08-04] MEDS: HOME MEDICATION 1 EACH IH SCH (09:00)
[2022-08-04 09:57] LABS: BASOPHILS % (AUTO) 0.6 % (0.0-5.0); EOSINOPHILS % (AUTO) 6.2 % (0.0-8.0); HEMATOCRIT 34.5 % (36-48); LYMPHOCYTES % (AUTO) 15.9 % (21.0-51.0); MEAN CORPUSCULAR HEMOGLOBIN 26.6 pg (27.0-33.0); MEAN CORPUSCULAR HGB CONC 30.7 g/dL (32.0-36.0); MEAN CORPUSCULAR VOLUME 86.7 fL (79-99); MONOCYTES % (AUTO) 6.5 % (3.0-13.0); NEUTROPHILS % (AUTO) 70.2 % (40.0-77.0); PLATELET COUNT (AUTO) 288 K/uL (130-400); RED BLOOD CELL COUNT(AUTO) 3.98 MIL/uL (4.00-5.50); RED CELL DISTRIBUTION WIDTH 14.6 % (11.0-15.5); WHITE BLOOD COUNT (AUTO) 10.8 K/uL (4.8-10.8)
[2022-08-04 10:23] LABS: ALBUMIN 2.7 g/dL (3.5-5.0); POTASSIUM 4.2 mmol/L (3.5-5.1); TOTAL PROTEIN, SERUM 6.4 g/dL (6.0-8.3)
[2022-08-04] MEDS: VANCOMYCIN 1.5 GM/250 ML BAG 250 ML IV SCH (10:47)
[2022-08-04 12:00] VITALS: BP 145/60
[2022-08-04 16:00] VITALS: BP 101/43
== END 2022-08-04 17:55 | disposition home or self-care (01) | DRG 872 ==
LOC: EDH 10:20 → EDHIP 15:19 → 4DH 21:17
PROVIDERS: ADMIT Internal Medicine; ATTEND Internal Medicine
DX: A41.9 Sepsis, unspecified organism (principal); N39.0 Urinary tract infection, site not specified; L03.211 Cellulitis of face; E11.9 Type 2 diabetes mellitus without complications; E66.01 Morbid (severe) obesity due to excess calories; I10 Essential (primary) hypertension; D64.9 Anemia, unspecified; Z68.38 Body mass index [BMI] 38.0-38.9, adult; B95.4 Other streptococcus as the cause of diseases classified elsewhere; E78.00 Pure hypercholesterolemia, unspecified; E83.42 Hypomagnesemia; E87.6 Hypokalemia; J45.909 Unspecified asthma, uncomplicated; Z83.3 Family history of diabetes mellitus; Z90.49 Acquired absence of other specified parts of digestive tract
CPT/HCPCS: 36415; 70450; 70488; 71045; 74176; 76705; 80048; 80053; 80202; 81001; 82948; 83036; 83605; 83735; 84145; 84443; 84484; 85025; 85610; 85730; 87040; 87088; 87635; 87804; 93005; 94640; 94664; 97039; C9803; G0378; J0290; J0692; J1170; J1815; J2543; J3475; J3480; J3490; J7030; Q9967

== ENCOUNTER 2022-10-08 20:06 | Emergency (ER) | payer OTHER, MEDICARE ==
[~2022-10-08] VITALS: Ht 154.9 cm; Wt 103.9 kg
[~2022-10-08 20:06] MED LIST changes: -AZIT250T9 PO; -DIPH1TAB PO; -ISOS20TA85 PO; -LEVO-70 PO; -ONDA-104 PO
[2022-10-08] MEDS ORDERED: MORPHINE 2 MG SYG IVP ONE (22:30)
[2022-10-08] MEDS ORDERED: DiphenhydrAMINE HCL 50 MG/ML VIAL IM ONE (22:30)
[2022-10-08] MEDS ORDERED: METOCLOPRAMIDE 10 MG/2 ML VIAL IVP ONE (22:30)
[2022-10-08 22:46] LABS: APPEARANCE,URINE CLOUDY (CLEAR); BILIRUBIN,URINE NEGATIVE (NEGATIVE); COLOR,URINE LIGHT-YELLOW (YELLOW); GLUCOSE, URINE (UA) >=1000 mg/dL (NEGATIVE); KETONES,URINE NEGATIVE (NEGATIVE); LEUKOCYTE ESTERASE ,URINE 500 Leu/uL (NEGATIVE); NITRATE,URINE NEGATIVE (NEGATIVE); PH,URINE 5.5 (5.0-8.0); PROTEIN,URINE 10 mg/dL (NEGATIVE); UROBILINOGEN,URINE 0.2 mg/dL (0.2-1.0)
[2022-10-08 22:53] LABS: BACTERIA,URINE RARE /HPF (None Seen); SQUAMOUS EPITHELIAL CELL,UR MOD /HPF (0-2); YEAST,URINE BUDDING FEW /HPF (None Seen)
[2022-10-08 23:13] LABS: BASOPHILS % (AUTO) 0.5 % (0.0-5.0); EOSINOPHILS % (AUTO) 3.8 % (0.0-8.0); HEMATOCRIT 33.7 % (36-48); LYMPHOCYTES % (AUTO) 17.9 % (21.0-51.0); MEAN CORPUSCULAR HEMOGLOBIN 26.9 pg (27.0-33.0); MEAN CORPUSCULAR HGB CONC 31.5 g/dL (32.0-36.0); MEAN CORPUSCULAR VOLUME 85.5 fL (79-99); MONOCYTES % (AUTO) 6.8 % (3.0-13.0); NEUTROPHILS % (AUTO) 70.2 % (40.0-77.0); PLATELET COUNT (AUTO) 322 K/uL (130-400); RED BLOOD CELL COUNT(AUTO) 3.94 MIL/uL (4.00-5.50); RED CELL DISTRIBUTION WIDTH 15.3 % (11.0-15.5); WHITE BLOOD COUNT (AUTO) 10.8 K/uL (4.8-10.8)
[2022-10-08 23:22] LABS: CREATININE 0.9 mg/dL (0.5-1.5); POTASSIUM 3.7 mmol/L (3.5-5.1)
[2022-10-08 23:27] LABS: TOTAL PROTEIN, SERUM 6.2 g/dL (6.0-8.3)
[2022-10-09] MEDS ORDERED: DIPHENHYDRAMINE HCL 25 MG CAPSULE ONE (00:31)
[2022-10-09] MEDS ORDERED: METOCLOPRAMIDE 10 MG TABLET ONE (00:32)
[2022-10-09 00:51] VITALS: BP 122/78
== END 2022-10-09 00:55 | disposition home or self-care (01) ==
LOC: EDH 20:06
DX: G43.909 Migraine, unspecified, not intractable, without status migrainosus (principal); M19.90 Unspecified osteoarthritis, unspecified site; E11.9 Type 2 diabetes mellitus without complications; E78.00 Pure hypercholesterolemia, unspecified; I10 Essential (primary) hypertension; J45.909 Unspecified asthma, uncomplicated; Z79.899 Other long term (current) drug therapy; Z90.49 Acquired absence of other specified parts of digestive tract
CPT/HCPCS: 99284; 80053; 85025; 87077; 87088; 87186; 81001; 36415; 93005; 96374; 96375; 96372; Q0163

== ENCOUNTER 2024-05-21 18:53 | Emergency (ER) | payer OTHER, MEDICARE ==
[~2024-05-21] VITALS: Ht 160 cm; Wt 90.7 kg
[~2024-05-21 18:53] MED LIST changes: +DOXY100T21 PO; -HYDR12.54 PO; +ISOS20TA85 PO; +LOSA1TAB37 PO; -LOSA50TA64 PO; +METH4TAB3 PO; -PRAM0.122 PO; +PRAM0.129 PO
[2024-05-21 20:13] LABS: BASOPHILS # (AUTO) 0.02 K/uL (0.00-0.20); BASOPHILS % (AUTO) 0.3 % (0.0-5.0); EOSINOPHILS # (AUTO) 0.05 K/uL (0.00-0.70); EOSINOPHILS % (AUTO) 0.8 % (0.0-8.0); HEMATOCRIT 35.7 % (36-48); IMMATURE GRANULOCYTE ABSOLUTE 0.07 K/uL (0-1); LYMPHOCYTES # (AUTO) 0.8 K/uL (1.0-4.8); LYMPHOCYTES % (AUTO) 12.5 % (21.0-51.0); MEAN CORPUSCULAR HEMOGLOBIN 27.9 pg (27.0-33.0); MEAN CORPUSCULAR HGB CONC 32.5 g/dL (32.0-36.0); MEAN CORPUSCULAR VOLUME 85.8 fL (79-99); MONOCYTES # (AUTO) 0.9 K/uL (0.1-1.0); MONOCYTES % (AUTO) 13.9 % (3.0-13.0); NEUTROPHILS # (AUTO) 4.7 K/uL (1.8-7.7); NEUTROPHILS % (AUTO) 71.4 % (40.0-77.0); PLATELET COUNT (AUTO) 237 K/uL (130-400); RED BLOOD CELL COUNT(AUTO) 4.16 MIL/uL (4.00-5.50); RED CELL DISTRIBUTION WIDTH 13.9 % (11.0-15.5); WHITE BLOOD COUNT (AUTO) 6.5 K/uL (4.8-10.8)
--- NOTE | 2024-05-21 20:13 | ERN ---
General Chief Complaint: Shortness of Breath Stated Complaint: SHORTNESS OF BREATH Time Seen by MD: 19:26 History of Present Illness Initial Comments Ms. Mcduffie is a very pleasant 73-year-old female significant past medical history of essential hypertension, hyperlipidemia, depression who presents today with a chief complaint of shortness of breath. Patient reports that she has been experiencing shortness of breath for the last 2 days. Patient states she has a associated chest pain. Patient reports mild cough. Patient reports that she has otherwise following a diet. Allergies: Coded Allergies: No Known Allergies (Verified Allergy, Unknown, 02/16/19) No Known Drug Allergies (Unverified Allergy, Unknown, 02/16/19) Home Meds Active Scripts Doxycycline Monohydrate (Doxycycline Monohydrate) 100 Mg Tablet, 1 TAB PO BID for 7 Days, #14 TAB 0 Refills Prov:ANDREWS CHAUDHRY MD 04/17/24 Methylprednisolone (Medrol) 4 Mg Tab.ds.pk, 1 TAB PO AD for 6 Days, #21 TAB 0 Refills 6 on day 1 then reduce by one tablet daily until gone Prov:STEFANI RODRIGUEZ AGPCNP 04/03/24 Reported Medications Semaglutide (Ozempic) 1 Mg/0.75 Ml (4 Mg/3 Ml) Pen.injctr, 1 MG SQ QWEEK for 30 Days, #3 ML 0 Refills 03/30/24 Losartan/Hydrochlorothiazide (Losartan-Hctz 50-12.5 mg Tab) 50 Mg-12.5 Mg Tablet, 1 TAB PO DAILY for 30 Days, #30 TAB 0 Refills 03/30/24 Pramipexole Di-HCl (Pramipexole Dihydrochloride) 0.125 Mg Tablet, 1 TAB PO HS 05/19/23 Isosorbide Mononitrate (Isosorbide Mononitrate) 20 Mg Tablet, 1 TAB PO BID 05/19/23 Fluticasone/Umeclidin/Vilanter (Trelegy Ellipta 200-62.5-25) 1 Each Blst.w.dev, 1 EACH IH DAILY 01/13/22 Empagliflozin/Metformin HCl (Synjardy Xr 25-1,000 mg Tablet) 1 Each Tab.bp.24h, 1 EACH PO DAILYBKFST 01/13/22 Montelukast Sodium (Montelukast Sodium) 10 Mg Tablet, 10 MG PO DAILY, TAB 8/22/22 Potassium Chloride (Potassium Chloride) 10 Meq Tab.er.prt, 10 MEQ PO DAILY 11/14/18 Citalopram Hydrobromide (Citalopram HBr) 10 Mg Tablet, 10 MG PO DAILY, TAB 11/14/18 Atorvastatin Calcium (LIPITOR) 40 Mg Tablet, 40 MG PO HS, TAB 11/14/18 [Vitamin D2 ] No Conflict Check, [address] UNITS PO Q Saturdays06/15/16 Past Medical History Past Medical History: Asthma, COPD, Diabetes-Type II, High Cholesterol, Hypertension Medical History Other: HX OF UTIs Past Surgical History: Unknown Surgical History Other: BILAT KNEE Family History Family History: Negative Social History Social History: Negative, Lives with family Female( History) History: Not Applicable ROS Dictation Constitutional: Negative for fever,chills, and weight loss Eyes: Negative for injury, pain,redness, and discharge ENT: Negative for injury,pain or swelling Cardiovascular: Positive for chest pain Respiratory: Positive shortness of breath and cough Abdomen/GI: Negative for abdominal pain, nausea, vomiting, diarrhea, and constipation Back: Negative for injury and pain : Negative for injury, bleeding and discharge MS/Extremity: Negative for injury and deformity Skin: Negative for rash, and discoloration Neuro: Negative for headache, weakness, numbness, tingling, and seizure Psych: Negative for suicide ideation, homicidal ideation, and hallucinations Physical Exam Physical Exam Dictation General: awake, alert, NAD Head/Face: Edentulous female Eyes: PERRL, EOMI, vision at baseline ENT: oral cavity clear, Neck: Trachea midline, supple, Cardiovascular: RRR, normal S1/S2, No MRGs, no JVD Respiratory: Diminished breath sounds Abdomen: Soft, non-tender, non-distended, normal bowel sounds, no guarding or rebound. Skin: Warm, dry, normal turgor, no rash Neuro: COAx4, GCS 15, strength 5/5 Results Laboratory and Microbiology Lab and Micro Result Laboratory Tests Test 05/21/24 19:50 05/21/24 19:57 White Blood Count 6.5 K/uL (4.8-10.8) Red Blood Count 4.16 MIL/uL (4.00-5.50) Hemoglobin 11.6 g/dL (12.0-16.0) L Hematocrit 35.7 % (36-48) L Mean Corpuscular Volume 85.8 fL (79-99) Mean Corpuscular Hemoglobin 27.9 pg (27.0-33.0) Mean Corpuscular Hemoglobin Concent 32.5 g/dL (32.0-36.0) Red Cell Distribution Width 13.9 % (11.0-15.5) Platelet Count 237 K/uL (130-400) Mean Platelet Volume 10.2 fL (7.5-10.5) Immature Granulocyte % (Auto) 1.1 % (0-1) H Neutrophils (%) (Auto) 71.4 % (40.0-77.0) Lymphocytes (%) (Auto) 12.5 % (21.0-51.0) L Monocytes (%) (Auto) 13.9 % (3.0-13.0) H Eosinophils (%) (Auto) 0.8 % (0.0-8.0) Basophils (%) (Auto) 0.3 % (0.0-5.0) Neutrophils # (Auto) 4.7 K/uL (1.8-7.7) Lymphocytes # (Auto) 0.8 K/uL (1.0-4.8) L Monocytes # (Auto) 0.9 K/uL (0.1-1.0) Eosinophils # (Auto) 0.05 K/uL (0.00-0.70) Basophils # (Auto) 0.02 K/uL (0.00-0.20) Absolute Immature Granulocyte (auto 0.07 K/uL (0-1) Nucleated Red Blood Cells 0.0 % (0.0-0.19) Sodium Level 144 mmol/L (136-145) Potassium Level 4.0 mmol/L (3.5-5.1) Chloride Level 103 mmol/L (101-111) Carbon Dioxide Level 34 mmol/L (21-32) H Blood Urea Nitrogen 16 mg/dL (7-18) Creatinine 0.9 mg/dL (0.5-1.0) Glomerular Filtration Rate Calc 68 mL/min (>90) Random Glucose 136 mg/dL (70-105) H Total Calcium 8.5 mg/dL (8.5-10.1) B-Type Natriuretic Peptide 43 pg/mL (0-100) Influenza Type A Antigen Positive For Type A Influenza Type B Antigen Negative For Type B SARS-CoV-2, RNA, NAAT NEGATIVE SARS CoV-2 MDM Patient was positive for flu A. Patient will be given Tamiflu and discharged. MDM: Differential diagnosis: Influenza a Rationale: Tests considered and ordered secondary to shared decision making include: Previous outside records reviewed: Old ER visits. Risk of complication and/or morbidity or mortality of patient management: None Medications-Per medication reconciliation Need for hospitalization: Patient does not meet criteria for hospitalization. Need for emergency major/minor surgery: No There are no social concerns with this patient. Prescription drug management Prescriptions will include symptomatic care Patient's prior external medical records from other ER visits were reviewed by me as indicated. Prior testing and results from previous visits were reviewed. Prior tests were taken into account with medical decision making and resource utilization, independent historian/historians were used to obtain complete medical history. I independently interpreted the test that were performed, results were reviewed by me and considered findings on radiology if ordered. Medical management and examination interpretation discussions were had by me with other qualified healthcare professionals as indicated for the patient's care. ED Course Orders Procedure Category Date Status Time Cbc With Differential LAB 05/21/24 Complete 19:39 B-Type Natriuretic LAB 05/21/24 Complete Peptide 19:39 Chest 1vw RAD 05/21/24 Resulted 19:39 12 Lead Ekg Tracing- EKG 05/21/24 Complete Technical 19:39 Basic Metabolic Panel LAB 05/21/24 Complete 19:39 Influenza Type A & B, LAB 05/21/24 Complete Rapid 19:39 Covid Rna Naat LAB 05/21/24 Complete 19:39 Vital Signs Date Time Temp Pulse Resp B/P (MAP) Pulse Ox O2 Delivery O2 Flow Rate FiO2 05/21/24 21:07 97.9 88 20 160/65 98 Nasal Cannula* 3 32 05/21/24 19:36 97.9 88 20 132/54 98 Nasal Cannula* 3 32 05/21/24 18:55 98.8 84 20 114/67 100 Nasal Cannula 2.0 DX & DISP Disposition: Discharge Departure Impression: Primary Impression: Influenza A Condition: Stable Scripts Oseltamivir Phosphate (Oseltamivir Phosphate) 75 Mg Capsule 1 CAP PO BID for 5 Days, #10 CAP 0 Refills Prov: ARELY RAINEY MD 05/21/24 Additional Instructions: Please follow up with your primary care physician in the next 1-7 days for continuance of care. Please take your medications as prescribed. Please take Tylenol for fever and pain. Referrals: DANIELE BUENO MD (PCP) ARELY RAINEY MD May 21, 2024 20:13
--- NOTE | 2024-05-21 20:23 | HMCIMG ---
INDICATION: Dyspnea/SOB TECHNIQUE: CHEST 1VW COMPARISON: 04/13/2024 FINDINGS/IMPRESSION: Prominent bilateral interstitial markings which may represent bronchitis or vascular congestion in the proper clinical setting. Cardiac silhouette is within normal limits. Mild degenerative changes of the spine. The visualized upper abdomen appears unremarkable.
[2024-05-21 20:39] LABS: B-TYPE NATRIURETIC PEPTIDE 43 pg/mL (0-100)
[2024-05-21 20:44] LABS: SARS-CoV-2, RNA, NAAT NEGATIVE SARS CoV-2 (NEGATIVE)
[2024-05-21 20:48] LABS: INFLUENZA TYPE B Negative For Type B (NEGATIVE)
[2024-05-21 20:52] LABS: INFLUENZA TYPE A Positive For Type A (NEGATIVE)
[2024-05-21 21:16] LABS: CREATININE 0.9 mg/dL (0.5-1.0)
--- NOTE | 2024-05-21 21:26 | EKG ---
[facility] Test Date: 2024-05-21 Test Time: 20:08:54 Pat Name: PANKAJ MADRID Department: ED Room: Gender: F Manager Business Continuity: [id number] : 1950 Requested By: ARELY RAINEY Order Number: [id number] Reading MD: Jack Curiel Measurements Intervals [place] Rate: 85 P: -10 [place]: 153 QRS: -21 QRSD: 81 T: 28 QT: 348 QTc: 414 Interpretive Statements Sinus rhythm Compared to ECG 04/15/2024 16:38:38 Sinus tachycardia no longer present ST (T wave) deviation no longer present Myocardial infarct finding no longer present Electronically Signed On 05-22-2024 16:59:44 HYDRAULIC ELEVATOR CONSTRUCTOR by Jack Curiel Please click the below link to view image of tracing.
[2024-05-21] MEDS ORDERED: OSEL75CA17 PO (21:46)
[2024-05-21] MEDS: OSELTAMIVIR PHOSPHATE 75 MG CAP PO ONE (22:08)
[2024-05-21 22:19] VITALS: BP 141/63; PULSE 90; RESP 20; TEMP 97.8; O2SAT 98
== END 2024-05-21 22:22 | disposition home or self-care (01) ==
LOC: EDH 18:53
DX: J10.1 Influenza due to other identified influenza virus with other respiratory manifestations (principal); E11.9 Type 2 diabetes mellitus without complications; E78.00 Pure hypercholesterolemia, unspecified; F32.A Depression, unspecified; I10 Essential (primary) hypertension; J44.89 Other specified chronic obstructive pulmonary disease; Z20.822 Contact with and (suspected) exposure to COVID-19; Z79.85 Long-term (current) use of injectable non-insulin antidiabetic drugs; Z79.899 Other long term (current) drug therapy
CPT/HCPCS: 36415; 71045; 80048; 83880; 85025; 87635; 87804; 93005; 99285

== ENCOUNTER 2024-09-04 09:33 | Emergency (ER) | payer OTHER, MEDICARE ==
[~2024-09-04] VITALS: Ht 157.5 cm; Wt 91.2 kg
[~2024-09-04 09:33] MED LIST changes: +ISOS-58 PO; -ISOS20TA85 PO; +OSEL75CA17 PO
[2024-09-04 09:36] VITALS: TEMP 98.4
[2024-09-04] MEDS: PANTOPrazole 40 MG/VIAL IVP ONE (10:23)
[2024-09-04] MEDS: LACTATED RINGERS 1000ML 1,000 ML IV ONE (10:24)
[2024-09-04 10:27] LABS: BASOPHILS # (AUTO) 0.04 K/uL (0.00-0.20); BASOPHILS % (AUTO) 0.4 % (0.0-5.0); EOSINOPHILS # (AUTO) 0.15 K/uL (0.00-0.70); EOSINOPHILS % (AUTO) 1.4 % (0.0-8.0); IMMATURE GRANULOCYTE ABSOLUTE 0.05 K/uL (0-1); LYMPHOCYTES # (AUTO) 0.5 K/uL (1.0-4.8); MEAN CORPUSCULAR HEMOGLOBIN 27.9 pg (27.0-33.0); MEAN CORPUSCULAR HGB CONC 31.8 g/dL (32.0-36.0); MEAN CORPUSCULAR VOLUME 87.6 fL (79-99); MONOCYTES # (AUTO) 0.3 K/uL (0.1-1.0); MONOCYTES % (AUTO) 2.4 % (3.0-13.0); NEUTROPHILS # (AUTO) 9.8 K/uL (1.8-7.7); NEUTROPHILS % (AUTO) 90.3 % (40.0-77.0); PLATELET COUNT (AUTO) 235 K/uL (130-400); RED BLOOD CELL COUNT(AUTO) 4.34 MIL/uL (4.00-5.50); RED CELL DISTRIBUTION WIDTH 13.9 % (11.0-15.5); WHITE BLOOD COUNT (AUTO) 10.9 K/uL (4.8-10.8)
[2024-09-04 10:45] LABS: BILIRUBIN,TOTAL 0.4 mg/dL (0.2-1.0); POTASSIUM 4.2 mmol/L (3.5-5.1); TOTAL PROTEIN, SERUM 6.5 g/dL (6.0-8.3)
--- NOTE | 2024-09-04 11:36 | ERN ---
General Chief Complaint: Abdominal Pain Stated Complaint: ABD PAIN N/V/D Time Seen by MD: 10:35 Source: patient History of Present Illness Initial Comments PATIENT IS A 74-YEAR-OLD FEMALE COMING IN WITH GENERALIZED ABDOMINAL PAIN. PATIENT STATES THAT THIS HAS BEEN ONGOING FOR TWO DAYS. THE PAIN HE WAS QUANTIFIES 5/10 ALONG WITH THE PAIN PATIENT HAS BEEN HAVING DIARRHEA. Allergies: Coded Allergies: No Known Allergies (Verified Allergy, Unknown, 02/16/19) No Known Drug Allergies (Unverified Allergy, Unknown, 02/16/19) Home Meds Active Scripts Oseltamivir Phosphate (Oseltamivir Phosphate) 75 Mg Capsule, 1 CAP PO BID for 5 Days, #10 CAP 0 Refills Prov:ARELY RAINEY MD 05/21/24 Doxycycline Monohydrate (Doxycycline Monohydrate) 100 Mg Tablet, 1 TAB PO BID for 7 Days, #14 TAB 0 Refills Prov:ANDREWS CHAUDHRY MD 04/17/24 Methylprednisolone (Medrol) 4 Mg Tab.ds.pk, 1 TAB PO AD for 6 Days, #21 TAB 0 Refills 6 on day 1 then reduce by one tablet daily until gone Prov:STEFANI RODRIGUEZ AGPCNP 04/03/24 Reported Medications Semaglutide (Ozempic) 1 Mg/0.75 Ml (4 Mg/3 Ml) Pen.injctr, 1 MG SQ QWEEK for 30 Days, #3 ML 0 Refills 03/30/24 Losartan/Hydrochlorothiazide (Losartan-Hctz 50-12.5 mg Tab) 50 Mg-12.5 Mg Tablet, 1 TAB PO DAILY for 30 Days, #30 TAB 0 Refills 03/30/24 Pramipexole Di-HCl (Pramipexole Dihydrochloride) 0.125 Mg Tablet, 1 TAB PO HS 05/19/23 Isosorbide Mononitrate (Isosorbide Mononitrate) 20 Mg Tablet, 1 TAB PO BID 05/19/23 Fluticasone/Umeclidin/Vilanter (Trelegy Ellipta 200-62.5-25) 1 Each Blst.w.dev, 1 EACH IH DAILY 01/13/22 Empagliflozin/Metformin HCl (Synjardy Xr 25-1,000 mg Tablet) 1 Each Tab.bp.24h, 1 EACH PO DAILYBKFST 01/13/22 Montelukast Sodium (Montelukast Sodium) 10 Mg Tablet, 10 MG PO DAILY, TAB 01/13/22 Potassium Chloride (Potassium Chloride) 10 Meq Tab.er.prt, 10 MEQ PO DAILY 11/14/18 Citalopram Hydrobromide (Citalopram HBr) 10 Mg Tablet, 10 MG PO DAILY, TAB 11/14/18 Atorvastatin Calcium (LIPITOR) 40 Mg Tablet, 40 MG PO HS, TAB 11/14/18 [Vitamin D2 ] No Conflict Check, [address] UNITS PO Q Saturdays06/15/16 Past Medical History Past Medical History: COPD, Diabetes-Type II, High Cholesterol, Hypertension Medical History Other: OBESITY Past Surgical History: Unknown Surgical History Other: BILAT KNEE Family History Family History: Negative Social History Social History: Negative, Lives with family Female( History) History: Not Applicable ROS Dictation CONSTITUTIONAL: NO CHILLS, NO FEVER, NO WEAKNESS, NO DIAPHORESIS, NO MALAISE. HEAD/FACE: NO SIGNS OF TRAUMA. EENT: NO EYE PAIN, NO BLURRED VISION, NO TEARING, NO DOUBLE VISION, NO EAR PAIN, NO EAR DISCHARGE, NO NOSE PAIN, NO NASAL CONGESTION, NO THROAT PAIN, NO THROAT SWELLING, NO MOUTH PAIN. RESPIRATORY: NO COUGH, NO ORTHOPNEA, NO SOB, NO STRIDOR, NO WHEEZING. CARDIOVASCULAR: NO CHEST PAIN, NO EDEMA, NO PALPITATIONS, NO SYNCOPE. GASTROINTESTINAL/ABDOMINAL: ABDOMINAL PAIN, NO CONSTIPATION, DIARRHEA, NO NAUSEA, NO VOMITING. GENITOURINARY: NO ABNORMAL DISCHARGE, NO DYSURIA, NO FREQUENT URINATION, NO HEMATURIA. NO COMPLAINTS OF PAIN IN THE GENITALS. MUSCULOSKELETAL: NO BACK PAIN, NO GOUT, NO JOINT PAIN, NO JOINT SWELLING, NO MUSCLE PAIN, NO MUSCLE STIFFNESS, NO NECK PAIN. INTEGUMENTARY: NO CHANGE IN COLOR, NO CHANGE IN HAIR/NAILS, NO DRYNESS, NO LESION, NO LUMPS, NO RASH. NEUROLOGICAL/PSYCH: NO ANXIETY, NOT DEPRESSED, NO EMOTIONAL PROBLEM, NO HEADACHE, NO NUMBNESS, NO PRE-EXISTING DEFICIT, NO HISTORY OF SEIZURES, NO TREMORS, NO WEAKNESS. HEMATOLOGIC/LYMPHATIC: NOT ANEMIC, NO HISTORY OF BLOOD CLOTS, NO APPARENT BLEEDING, NO BRUISING, GLANDS NOT SWOLLEN. ALL SYSTEMS NEGATIVE, EXCEPT NOTED. Physical Exam Physical Exam Dictation VITAL SIGNS: REVIEWED. GENERAL APPEARANCE: ALERT, ORIENTED X3, NO ACUTE DISTRESS, OBESE. HEAD AND FACE: NON-TRAUMATIC. EYES: PERRL, PINK CONJUNCTIVAS, EYELID NO TRAUMA, ANTERIOR CHAMBER CLEAR. EARS: PINNAS INTACT AND NO SIGNS OF TRAUMA OR ERYTHEMA. EAR CANALS CLEAR AND NO DISCHARGE. TMS NO ERYTHEMA. NOSE: NO DISCHARGE, NO BLEEDING. OROPHARYNX: MOUTH NORMAL, TEETH NO CARIES, TONGUE PINK. PHARYNX CLEAR, NO ERYTHEMA. TONSILS NO EXUDATES, NO ABSCESSES NOTED. MUCOUS MEMBRANE MOIST. NECK: SUPPLE, NON-TENDER, NO THYROMEGALY, NO MASSES, NO JVD, NO BRUITS. BREAST: DEFERRED. CHEST: NO TENDERNESS, NO CREPITUS, NO PARADOXICAL MOVEMENT, NO RETRACTIONS. LUNGS: CLEAR, WELL-VENTILATED, SYMMETRIC, NO RALES, NO WHEEZING, NO RHONCHI, NO STRIDOR, GOOD BREATH SOUNDS BILATERALLY. HEART: REGULAR RATE, REGULAR RHYTHM, NO MURMUR, NO GALLOPS. VASCULAR: NO PERIPHERAL EDEMA. ABDOMEN: SOFT, POSITIVE BOWEL SOUNDS, NONDISTENDED, NO GUARDING, GENERALIZED TENDER, NO REBOUND, NO MASSES NO HEPATOMEGALY, NO SPLENOMEGALY, NO LINDSAY'S SIGN, NO HERNIAS. RECTAL: DEFERRED. GENITAL: DEFERRED. NEUROLOGICAL: NORMAL SPEECH, GROSS MOTOR FUNCTION INTACT, GROSS SENSORY FUNCTION INTACT. MUSCULOSKELETAL: NECK NONTENDER, FULL RANGE OF MOTION, BACK NONTENDER, FULL RANGE OF MOTION. EXTREMITIES: NONTENDER, FULL RANGE OF MOTION. SKIN: COLOR PINK, DRY, NO TURGOR, NO RASH, NO LACERATIONS, NO ABRASIONS, NO CONTUSIONS. LYMPHATICS: DEFERRED. Results Laboratory and Microbiology Lab and Micro Result Laboratory Tests Test 09/04/24 10:19 White Blood Count 10.9 K/uL (4.8-10.8) H Red Blood Count 4.34 MIL/uL (4.00-5.50) Hemoglobin 12.1 g/dL (12.0-16.0) Hematocrit 38.0 % (36-48) Mean Corpuscular Volume 87.6 fL (79-99) Mean Corpuscular Hemoglobin 27.9 pg (27.0-33.0) Mean Corpuscular Hemoglobin Concent 31.8 g/dL (32.0-36.0) L Red Cell Distribution Width 13.9 % (11.0-15.5) Platelet Count 235 K/uL (130-400) Mean Platelet Volume 10.4 fL (7.5-10.5) Immature Granulocyte % (Auto) 0.5 % (0-1) Neutrophils (%) (Auto) 90.3 % (40.0-77.0) H Lymphocytes (%) (Auto) 5.0 % (21.0-51.0) L Monocytes (%) (Auto) 2.4 % (3.0-13.0) L Eosinophils (%) (Auto) 1.4 % (0.0-8.0) Basophils (%) (Auto) 0.4 % (0.0-5.0) Neutrophils # (Auto) 9.8 K/uL (1.8-7.7) H Lymphocytes # (Auto) 0.5 K/uL (1.0-4.8) L Monocytes # (Auto) 0.3 K/uL (0.1-1.0) Eosinophils # (Auto) 0.15 K/uL (0.00-0.70) Basophils # (Auto) 0.04 K/uL (0.00-0.20) Absolute Immature Granulocyte (auto 0.05 K/uL (0-1) Nucleated Red Blood Cells 0.0 % (0.0-0.19) White Cell Morphology Comment See comments Sodium Level 146 mmol/L (136-145) H Potassium Level 4.2 mmol/L (3.5-5.1) Chloride Level 109 mmol/L (101-111) Carbon Dioxide Level 31 mmol/L (21-32) Blood Urea Nitrogen 24 mg/dL (7-18) H Creatinine 1.0 mg/dL (0.5-1.0) Glomerular Filtration Rate Calc 59 mL/min (>90) Random Glucose 170 mg/dL (70-105) H Total Calcium 8.5 mg/dL (8.5-10.1) Total Bilirubin 0.4 mg/dL (0.2-1.0) Aspartate Amino Transf (AST/SGOT) 50 U/L (10-37) H Alanine Aminotransferase (ALT/SGPT) 62 U/L (12-78) Alkaline Phosphatase 119 U/L (50-136) Total Creatine Kinase 139 U/L (21-232) Troponin I High Sensitivity 7 ng/L (4-50) Total Protein 6.5 g/dL (6.0-8.3) Albumin 3.0 g/dL (3.5-5.0) L Lipase 24 U/L (16-77) Labs Reviewed?: Yes EKG/XRAY/US/CT/MRI EKG Comment 09/04/2024 TIME 10:25 A.M. VENTRICULAR RATE 75 SINUS RHYTHM [place] [address] WAVE ELEVATION OR DEPRESSION CT Scan Comment [facility] [address] [place] [address] IMAGING REPORT Signed PATIENT: PANKAJ MADRID MR#: [id number] : 1950 SEX: F AGE: 74 LOCATION: [facility] ORDER 24 STATUS: [facility] REPORT#: [id number] SERVICE 23 REASON: ABD PAIN ORDERING PHYSICIAN: MARY DE JESUS MD PROCEDURE: ABD PEL WO - CT ABDOMEN/PELVIS W/O CONTRAST CT ABDOMEN WITHOUT CONTRAST. CT PELVIS WITHOUT CONTRAST. INDICATION: Abdominal pain; No relevant information related to this study was provided in patient's history by the ordering service. TECHNIQUE: Routine transaxial imaging using 5 mm slice thickness through the abdomen and pelvis without the administration of IV contrast. Thin slice reconstructions are also provided. Coronal and sagittal reformatted images acquired for interpretation. CT was performed with one or more of the following dose reduction techniques: Automated exposure control, adjustment of the mA and/or kV according to patient size, or use of iterative reconstruction technique. COMPARISON: 03/29/2024 FINDINGS: ON NONCONTRAST IMAGING: ABDOMEN: Heart size is normal. Coronary arterial wall calcific plaque noted. Visible lung bases are clear. No abnormal renal calcifications, hydronephrosis, perinephric inflammation, or proximal hydroureter detected. The liver is normal in size and smooth in contour without biliary duct dilation. The spleen is normal in size and attenuation. The gallbladder his absent. The pancreas appears normal without pancreatic duct dilation. The adrenal glands appear normal. No significant abdominal, retrocrural or retroperitoneal adenopathy noted. No evidence for intra-abdominal free air or organized fluid collection. Mild calcific plaque is noted along the abdominal aortic and iliac vessel voss without aneurysmal dilation. Small fat-containing nonobstructing supraumbilical hernia. PELVIS: No abnormal calcifications within the urinary bladder or distal ureters. No evidence for free air or organized pelvic fluid collection. No significant pelvic adenopathy detected. Visualized small and large bowel loops appear unremarkable. Terminal ileum appears unremarkable. The appendix appears normal. 4.3 cm partially calcific exophytic fibroid arising superiorly off the right uterine fundus. Much smaller 1.0 cm calcific subserosal left uterine body fibroid. Mild thoracolumbar spondylosis. IMPRESSION: Limited history provided. 1. Chronic degenerative multifibroid uterus without evidence for any acute intra-abdominal or pelvic process. 2. Small fat-containing nonobstructing supraumbilical hernia. 3. Arteriosclerotic disease as described. 4. Additional minor findings, postsurgical changes, and pertinent negatives as reported. DICTATED BY: FRANCO JUAREZ MD DATE: 09/04/24 1255 ELECTRONICALLY SIGNED BY: FRANCO JUAREZ MD DATE: 09/04/24 1303 MDM MDM: DIFFERENTIAL DIAGNOSIS: ABDOMINAL PAIN, GASTROENTERITIS, VIRAL GASTROENTERITIS, BOWEL OBSTRUCTION RATIONALE: TESTS CONSIDERED AND ORDERED SECONDARY TO SHARED DECISION MAKING INCLUDE: PREVIOUS OUTSIDE RECORDS REVIEWED: OLD ER VISITS. RISK OF COMPLICATION AND/OR MORBIDITY OR MORTALITY OF PATIENT MANAGEMENT: NONE PATIENT WAS EVALUATED FOR ABDOMINAL PAIN CT DISCLOSE UTERINE FIBROIDS. I DID ADVISED PATIENT APPROPRIATE FOLLOW UP WITH PCP AND HER MANAGER FLIGHT FOR FURTHER EVALUATION. PATIENT WILL BE DISCHARGED IN STABLE CONDITION WITH A DIAGNOSIS OF UTERINE FIBROID GASTROENTERITIS AND ABDOMINAL HERNIA. ED Course Orders Procedure Category Date Status Time Cbc With Differential LAB 09/04/24 Complete 09:46 Comprehensive LAB 09/04/24 Complete Metabolic Panel 09:46 Troponin I High LAB 09/04/24 Complete Sensitivity 09:46 Urinalysis Profile LAB 09/04/24 Logged 09:46 12 Lead Ekg Tracing- EKG 09/04/24 Logged Technical 09:46 Lactated Ringers PHA 09/04/24 Complete 1000ml (Lactated 10:00 Creatine Kinase, Total LAB 09/04/24 Complete 09:46 Lipase LAB 09/04/24 Complete 09:46 Pantoprazole 40mg Inj PHA 09/04/24 Complete (Protonix 40mg Inj 10:00 Lidocaine Hcl 2% PHA 09/04/24 Complete Viscous (Lidocaine Hcl 11:30 Mag/Alum/Simeth 30ml PHA 09/04/24 Complete (Maalox Plus 30ml) 11:30 Ct Abdomen/Pelvis W/O CT 09/04/24 Resulted Contrast 11:24 Current Medications Medications (Trade) Dose Ordered Sig/Pamela Route PRN Reason Start Time Stop Time Status Last Admin Dose Admin Al Hydroxide/Mg Hydroxide (MAALox PLUS 30ML) 30 ml ONCE ONCE PO 09/04/24 11:30 09/04/24 11:31 DC 09/04/24 11:41 Lactated Ringer's 1,000 ml @ 0 mls/hr ONCE ONCE IV 09/04/24 10:00 09/04/24 10:01 DC 09/04/24 10:24 Lidocaine HCl (Lidocaine HCl 2% Viscous) 10 ml ONCE ONCE PO 09/04/24 11:30 09/04/24 11:31 DC 09/04/24 11:42 Pantoprazole Sodium (PROTonix 40MG INJ) 40 mg ONCE ONCE IVP 09/04/24 10:00 09/04/24 10:01 DC 09/04/24 10:23 Vital Signs Date Time Temp Pulse Resp B/P (MAP) Pulse Ox O2 Delivery O2 Flow Rate FiO2 09/04/24 12:31 78 17 139/96 96 Room Air* 0 21 09/04/24 09:36 98.4 81 16 139/56 95 Room Air 0 DX & DISP Disposition: Discharge Departure Impression: Primary Impression: Gastroenteritis Additional Impressions: Fibroid uterus, Ventral hernia Condition: Stable Additional Instructions: FOLLOW-UP WITH PRIMARY CARE PROVIDER IN 1 TO 2 DAYS. TAKE MEDICATIONS DIRECTED HERE IN THE EMERGENCY ROOM. OKAY TO CONTINUE HOME MEDICATIONS UNLESS OTHERWISE DISCUSSED DURING YOUR VISIT IN THE EMERGENCY ROOM TODAY. RETURN TO YOUR NEAREST EMERGENCY ROOM IF SYMPTOMS WORSEN OR IF THERE IS NO IMPROVEMENT. CALL 911 IF YOU NEED IMMEDIATE ASSISTANCE. TAKE TYLENOL [id number] NEEDED AND IF NO CONTRAINDICATIONS ARE PRESENT. INCREASE ORAL HYDRATION. A WOUND CULTURE OR URINE CULTURE WAS ORDERED HERE IN THE EMERGENCY ROOM DEPARTMENT PLEASE FOLLOW-UP WITH PRIMARY CARE PROVIDER AND ADVISE THEM TO GET REPEAT PORTS FROM OUR FACILITY. IF YOU HAD ANY PETRA WRAP/SPLINTS THAT WERE APPLIED HERE, PLEASE DO NOT REMOVE THEM UNTIL YOU SEE YOUR PRIMARY CARE OR SPECIALTY. REFERRALS: Referrals: DANIELE BUENO MD (PCP) Time of Disposition: 13:06 MARY DE JESUS MD Sep 04, 2024 11:36
[2024-09-04] MEDS: MAG/ALUM/SIMETH 30 ML UDCUP PO ONE (11:41)
[2024-09-04] MEDS: LIDOCAINE HCL 2% VISCOUS 15 ML UDCUP PO ONE (11:42)
[2024-09-04 12:31] VITALS: BP 139/96; PULSE 78; RESP 17; O2SAT 96
--- NOTE | 2024-09-04 13:03 | HMCIMG ---
CT ABDOMEN WITHOUT CONTRAST. CT PELVIS WITHOUT CONTRAST. INDICATION: Abdominal pain; No relevant information related to this study was provided in patient's history by the ordering service. TECHNIQUE: Routine transaxial imaging using 5 mm slice thickness through the abdomen and pelvis without the administration of IV contrast. Thin slice reconstructions are also provided. Coronal and sagittal reformatted images acquired for interpretation. CT was performed with one or more of the following dose reduction techniques: Automated exposure control, adjustment of the mA and/or kV according to patient size, or use of iterative reconstruction technique. COMPARISON: 03/29/2024 FINDINGS: ON NONCONTRAST IMAGING: ABDOMEN: Heart size is normal. Coronary arterial wall calcific plaque noted. Visible lung bases are clear. No abnormal renal calcifications, hydronephrosis, perinephric inflammation, or proximal hydroureter detected. The liver is normal in size and smooth in contour without biliary duct dilation. The spleen is normal in size and attenuation. The gallbladder his absent. The pancreas appears normal without pancreatic duct dilation. The adrenal glands appear normal. No significant abdominal, retrocrural or retroperitoneal adenopathy noted. No evidence for intra-abdominal free air or organized fluid collection. Mild calcific plaque is noted along the abdominal aortic and iliac vessel voss without aneurysmal dilation. Small fat-containing nonobstructing supraumbilical hernia. PELVIS: No abnormal calcifications within the urinary bladder or distal ureters. No evidence for free air or organized pelvic fluid collection. No significant pelvic adenopathy detected. Visualized small and large bowel loops appear unremarkable. Terminal ileum appears unremarkable. The appendix appears normal. 4.3 cm partially calcific exophytic fibroid arising superiorly off the right uterine fundus. Much smaller 1.0 cm calcific subserosal left uterine body fibroid. Mild thoracolumbar spondylosis. IMPRESSION: Limited history provided. 1. Chronic degenerative multifibroid uterus without evidence for any acute intra-abdominal or pelvic process. 2. Small fat-containing nonobstructing supraumbilical hernia. 3. Arteriosclerotic disease as described. 4. Additional minor findings, postsurgical changes, and pertinent negatives as reported.
--- NOTE | 2024-09-04 16:22 | EKG ---
[facility] Test Date: 2024-09-04 Test Time: 10:25:54 Pat Name: APNKAJ MADRID Department: ED Room: Gender: F Acute Specialist: student : 1950 Requested By: MARY DE JESUS Order Number: [id number] Reading MD: Tolu Finch Measurements Intervals [place] Rate: 75 P: 52 UT: 158 QRS: -3 QRSD: 81 T: 55 QT: 375 QTc: 419 Interpretive Statements Sinus rhythm Low voltage, precordial leads Compared to ECG 05/21/2024 20:08:54 Low QRS voltage now present Electronically Signed On 09-05-2024 13:34:55 CDT by Tolu Finch Please click the below link to view image of tracing.
== END 2024-09-04 14:02 | disposition home or self-care (01) ==
LOC: EDH 09:33
DX: K52.9 Noninfective gastroenteritis and colitis, unspecified (principal); D25.9 Leiomyoma of uterus, unspecified; K43.9 Ventral hernia without obstruction or gangrene; E11.9 Type 2 diabetes mellitus without complications; E66.9 Obesity, unspecified; E78.00 Pure hypercholesterolemia, unspecified; I10 Essential (primary) hypertension; J44.9 Chronic obstructive pulmonary disease, unspecified; Z79.85 Long-term (current) use of injectable non-insulin antidiabetic drugs; Z79.899 Other long term (current) drug therapy
CPT/HCPCS: 99285; 74176; 96374; 96361; 82550; 84484; 80053; 83690; 85025; 36415; 93005; J7120; J2470

== ENCOUNTER 2024-09-25 10:25 | Emergency (ER) | payer OTHER, MEDICAID ==
--- NOTE | 2024-09-25 11:27 | ERN ---
ED Note History of Present Illness Stated Complaint: GENERALIZED ABDOMINAL PAIN Chief Complaint: Abdominal Pain Time Seen by MD: 10:32 Time Seen by Midlevel: 10:36 Dictation: 74 y/o female c/o lower abdominal pain, generalized body weakness and dysuria onset two days. Patient denies having any fevers, headache, chest pain or chest discomfort. Surgical history of a cholecystectomy. Allergies: Coded Allergies: No Known Allergies (Verified Allergy, Unknown, 02/16/19) No Known Drug Allergies (Unverified Allergy, Unknown, 02/16/19) Home Meds Active Scripts Oseltamivir Phosphate (Oseltamivir Phosphate) 75 Mg Capsule, 1 CAP PO BID for 5 Days, #10 CAP 0 Refills Prov:ARELY RAINEY MD 05/21/24 Doxycycline Monohydrate (Doxycycline Monohydrate) 100 Mg Tablet, 1 TAB PO BID for 7 Days, #14 TAB 0 Refills Prov:ANDREWS CHAUDHRY MD 04/17/24 Methylprednisolone (Medrol) 4 Mg Tab.ds.pk, 1 TAB PO AD for 6 Days, #21 TAB 0 Refills 6 on day 1 then reduce by one tablet daily until gone Prov:STEFANI RODRIGUEZ AGPCNP 04/03/24 Reported Medications Semaglutide (Ozempic) 1 Mg/0.75 Ml (4 Mg/3 Ml) Pen.injctr, 1 MG SQ QWEEK for 30 Days, #3 ML 0 Refills 03/30/24 Losartan/Hydrochlorothiazide (Losartan-Hctz 50-12.5 mg Tab) 50 Mg-12.5 Mg Tablet, 1 TAB PO DAILY for 30 Days, #30 TAB 0 Refills 03/30/24 Pramipexole Di-HCl (Pramipexole Dihydrochloride) 0.125 Mg Tablet, 1 TAB PO HS 05/19/23 Isosorbide Mononitrate (Isosorbide Mononitrate) 20 Mg Tablet, 1 TAB PO BID 05/19/23 Fluticasone/Umeclidin/Vilanter (Trelegy Ellipta 200-62.5-25) 1 Each Blst.w.dev, 1 EACH IH DAILY 01/13/22 Empagliflozin/Metformin HCl (Synjardy Xr 25-1,000 mg Tablet) 1 Each Tab.bp.24h, 1 EACH PO DAILYBKFST 01/13/22 Montelukast Sodium (Montelukast Sodium) 10 Mg Tablet, 10 MG PO DAILY, TAB 01/13/22 Potassium Chloride (Potassium Chloride) 10 Meq Tab.er.prt, 10 MEQ PO DAILY 11/14/18 Citalopram Hydrobromide (Citalopram HBr) 10 Mg Tablet, 10 MG PO DAILY, TAB 11/14/18 Atorvastatin Calcium (LIPITOR) 40 Mg Tablet, 40 MG PO HS, TAB 11/14/18 [Vitamin D2 ] No Conflict Check, [address] UNITS PO Q Saturdays06/15/16 Past Medical History Past Medical History: COPD, Diabetes-Type II, High Cholesterol, Hypertension Additional Past Medical Hx: OBESITY Surgical History: Unknown Surgical History Other: BILAT KNEE Family History: Negative Social History: Negative, Lives with family History: Not Applicable Review of System Dictation Constitutional: Negative for fever,chills, and weight loss Eyes: Negative for injury, pain,redness, and discharge ENT: Negative for injury,pain or swelling Cardiovascular: Negative for chest pain, palpitations, and edema Respiratory: Negative for shortness of breath, cough, and wheezing, Abdomen/GI: Complaining of lower abdominal pain, no nausea, no vomiting, no diarrhea, and no constipation Back: Negative for injury and pain : Negative for injury, bleeding and discharge complaining of pain on urination MS/Extremity: Negative for injury and deformity Skin: Negative for rash, and discoloration Neuro: Negative for headache, weakness, numbness, tingling, and seizure Psych: Negative for suicide ideation, homicidal ideation, and hallucinations Review of Systems: was completed Initial Vital Sign VS Vital Signs Date Time Temp Pulse Resp B/P (MAP) Pulse Ox O2 Delivery O2 Flow Rate FiO2 09/25/24 10:30 97.9 100 18 100/60 99 09/25/24 10:40 Room Air* 0 21 Physical Exam Dictation General: awake, alert, NAD Head/Face: Normocephalic, atraumatic Eyes: PERRL, EOMI, vision at baseline ENT: oral cavity clear, TMs clear, no signs of infection Neck: Trachea midline, supple, no nuchal rigidity Cardiovascular: RRR, normal S1/S2, No MRGs, no JVD Respiratory: CTAB, no respiratory distress, No rales or wheezes Abdomen: Soft, non-tender, non-distended, normal bowel sounds, no guarding or rebound. Skin: Warm, dry, normal turgor, no rash MS/Extremity: Pulses equal, no cyanosis, neurovascular intact, FROM Neuro: COAx4, GCS 15, strength 5/5, CN 2-12 intact, normal cerebellar exam, normal gait, Psych: Normal behavior, mood, and affect normal Results (Laboratory/Radiology) Laboratory/Radiology Laboratory Tests Test 09/25/24 11:27 09/25/24 13:45 White Blood Count 10.0 K/uL (4.8-10.8) Red Blood Count 4.25 MIL/uL (4.00-5.50) Hemoglobin 12.1 g/dL (12.0-16.0) Hematocrit 37.4 % (36-48) Mean Corpuscular Volume 88.0 fL (79-99) Mean Corpuscular Hemoglobin 28.5 pg (27.0-33.0) Mean Corpuscular Hemoglobin Concent 32.4 g/dL (32.0-36.0) Red Cell Distribution Width 14.1 % (11.0-15.5) Platelet Count 218 K/uL (130-400) Mean Platelet Volume 10.3 fL (7.5-10.5) Immature Granulocyte % (Auto) 0.3 % (0-1) Neutrophils (%) (Auto) 87.6 % (40.0-77.0) H Lymphocytes (%) (Auto) 5.9 % (21.0-51.0) L Monocytes (%) (Auto) 4.3 % (3.0-13.0) Eosinophils (%) (Auto) 1.6 % (0.0-8.0) Basophils (%) (Auto) 0.3 % (0.0-5.0) Neutrophils # (Auto) 8.8 K/uL (1.8-7.7) H Lymphocytes # (Auto) 0.6 K/uL (1.0-4.8) L Monocytes # (Auto) 0.4 K/uL (0.1-1.0) Eosinophils # (Auto) 0.16 K/uL (0.00-0.70) Basophils # (Auto) 0.03 K/uL (0.00-0.20) Absolute Immature Granulocyte (auto 0.03 K/uL (0-1) Nucleated Red Blood Cells 0.0 % (0.0-0.19) White Cell Morphology Comment See comments Sodium Level 139 mmol/L (136-145) Potassium Level 3.4 mmol/L (3.5-5.1) L Chloride Level 105 mmol/L (101-111) Carbon Dioxide Level 27 mmol/L (21-32) Blood Urea Nitrogen 17 mg/dL (7-18) Creatinine 0.8 mg/dL (0.5-1.0) Glomerular Filtration Rate Calc 78 mL/min (>90) Random Glucose 151 mg/dL (70-105) H Total Calcium 8.1 mg/dL (8.5-10.1) L Total Bilirubin 0.5 mg/dL (0.2-1.0) Direct Bilirubin 0.1 mg/dL (0.0-0.3) Aspartate Amino Transf (AST/SGOT) 14 U/L (10-37) Alanine Aminotransferase (ALT/SGPT) 18 U/L (12-78) Alkaline Phosphatase 100 U/L (50-136) Total Protein 6.6 g/dL (6.0-8.3) Albumin 3.1 g/dL (3.5-5.0) L Lipase 34 U/L (16-77) Urine Color YELLOW (YELLOW) Urine Appearance CLOUDY (CLEAR) H Urine pH 5.5 (5.0-8.0) Urine Specific [place] 1.021 (1.001-1.031) Urine Protein 50 mg/dL (NEGATIVE) H Urine Glucose (UA) TRACE mg/dL (NEGATIVE) H Urine Ketones NEGATIVE mg/dL (NEGATIVE) Urine Occult Blood SMALL (NEGATIVE) H Urine Nitrate NEGATIVE (NEGATIVE) Urine Bilirubin NEGATIVE mg/dL (NEGATIVE) Urine Urobilinogen 0.2 mg/dL (0.2-1.0) Urine Leukocyte Esterase 500 Vahid/uL (NEGATIVE) H Labs Reviewed?: Yes EKG Comment: EKGs done at 11:07 a.m., sinus rhythm at a rate of 70. No ST elevations, no STEMI interpreted by ER MD X-RAY Comment: [place] [address] [place] [id number] IMAGING REPORT Signed PATIENT: PANKAJ MADRID MR#: [id number] : 1950 SEX: F AGE: 74 LOCATION: [facility] ORDER [id number] STATUS: REG ER REPORT#: [id number] SERVICE 1058 REASON: cp ORDERING PHYSICIAN: CHAR BRITO NP PROCEDURE: CXR1VW - CHEST 1VW CHEST 1VW HISTORY: Chest pain COMPARISON: 05/21/2024 FINDINGS: A frontal projection of the chest was obtained. Prominent interstitial markings are seen with possible superimposed infiltrates. The heart is borderline enlarged. Poor inspiratory effort is seen. Degenerative changes are seen. No evidence of aortic calcification is seen. IMPRESSION: 1. Prominent interstitial markings are seen with possible superimposed infiltrates. DICTATED BY: GELA LIANG MD DATE: 09/25/24 1148 ELECTRONICALLY SIGNED BY: GELA LIANG MD DATE: 09/25/24 1151 ED Course ED Course Orders Procedure Category Date Status Time Cbc With Differential LAB 09/25/24 Complete 10:34 Basic Metabolic Panel LAB 09/25/24 Complete 10:34 Lipase LAB 09/25/24 Complete 10:34 Hepatic Function Panel LAB 09/25/24 Complete 10:34 Urinalysis Profile LAB 09/25/24 In Process 10:34 12 Lead Ekg Tracing- EKG 09/25/24 Logged Technical 10:34 Chest 1vw RAD 09/25/24 Resulted 10:58 Ondansetron 4mg Inj PHA 09/25/24 Complete (Zofran 4mg Inj) 13:56 Morphine 2mg Syg PHA 09/25/24 Complete (Morphine 2mg Syg) 13:56 Ceftriaxone 1g Vial PHA 09/25/24 Complete (Rocephine 1g Inj) 14:01 Culture Urine FRANCISCO J 09/25/24 Logged 14:04 Current Medications Medications (Trade) Dose Ordered Sig/Pamela Route PRN Reason Start Time Stop Time Status Last Admin Dose Admin Ceftriaxone Sodium (ROCEphine 1G INJ) 1 gm ONCE STAT IVPB 09/25/24 14:01 09/25/24 14:03 DC Morphine Sulfate (morPHINE 2MG SYG) 2 mg ONCE STAT IVP 09/25/24 13:56 09/25/24 13:59 DC Ondansetron HCl (zoFRAN 4MG INJ) 4 mg ONCE STAT IVP 09/25/24 13:56 5/4/25 13:59 DC Vital Signs Date Time Temp Pulse Resp B/P (MAP) Pulse Ox O2 Delivery O2 Flow Rate FiO2 09/25/24 10:40 97.9 100 18 100/60 98 Room Air* 0 21 09/25/24 10:30 97.9 100 18 100/60 99 Medical Decision Making MDM MDM:74 y/o female c/o of lower abdominal pain, generalized body weakness and dysuria onset two days. Patient denies having any fevers, headache, chest pain or chest discomfort. Surgical history of a cholecystectomy. On physical exam lung sounds are clear bilaterally, abdomen is soft and nondistended, no tenderness on palpation. No CVA tenderness. CBC shows no leukocytosis, no anemia, no thrombocytopenia. Chemistries reads mild hypokalemia at 3.4. Normal kidney function. Mild hyperglycemia glucose of 151. No transaminitis. Lipase within normal range. UA shows evidence of urinary tract infection, and patient was complaining of dysuria. Patient will get antibiotics here in the emergency room along with pain management and fluids. On reassessment patient states she feels much better. Discussed with the patient that I will give her a prescription for antibiotics but she needs to follow up with her PCP in 1-2 days. Patient verbalized understanding, answered all questions. Differential diagnosis: Tract infection, pyelonephritis, gastroenteritis, dehydration Rationale: Tests considered and ordered secondary to shared decision making include: Previous outside records reviewed: Old ER visits. Risk of complication and/or morbidity or mortality of patient management: None Medications-Per medication reconciliation Need for hospitalization: Patient does not meet criteria for hospitalization. Need for emergency major/minor surgery: No There are no social concerns with this patient. Prescription drug management Prescriptions will include symptomatic care Patient's prior external medical records from other ER visits were reviewed by me as indicated. Prior testing and results from previous visits were reviewed. Prior tests were taken into account with medical decision making and resource utilization, independent historian/historians were used to obtain complete medical history. I independently interpreted the test that were performed, results were reviewed by me and considered findings on radiology if ordered. Medical management and examination interpretation discussions were had by me with other qualified healthcare professionals as indicated for the patient's care. DX & DISP Disposition: Discharge Departure Impression: Primary Impression: Urinary tract infection Condition: Stable Scripts Cephalexin Monohydrate (Keflex) 500 Mg Cap 1 CAP PO BID for 7 Days, #14 CAP 0 Refills Prov: CHAR BRITO [employer] 09/25/24 Additional Instructions: Take antibiotics as prescribed. Follow up with PCP in 1-2 days. If you have any fever, nausea, vomiting, back pain please return back to the emergency room. Referrals: DANIELE BUENO MD (PCP) Time of Disposition: 14:10 I have reviewed the case, and I agree with, Diagnosis and Plan CHAR BRITO NP September 25, 2024 11:27
[2024-09-25 11:41] LABS: BASOPHILS # (AUTO) 0.03 K/uL (0.00-0.20); BASOPHILS % (AUTO) 0.3 % (0.0-5.0); EOSINOPHILS # (AUTO) 0.16 K/uL (0.00-0.70); EOSINOPHILS % (AUTO) 1.6 % (0.0-8.0); HEMATOCRIT 37.4 % (36-48); IMMATURE GRANULOCYTE ABSOLUTE 0.03 K/uL (0-1); LYMPHOCYTES # (AUTO) 0.6 K/uL (1.0-4.8); LYMPHOCYTES % (AUTO) 5.9 % (21.0-51.0); MEAN CORPUSCULAR HEMOGLOBIN 28.5 pg (27.0-33.0); MEAN CORPUSCULAR HGB CONC 32.4 g/dL (32.0-36.0); MONOCYTES # (AUTO) 0.4 K/uL (0.1-1.0); MONOCYTES % (AUTO) 4.3 % (3.0-13.0); NEUTROPHILS # (AUTO) 8.8 K/uL (1.8-7.7); NEUTROPHILS % (AUTO) 87.6 % (40.0-77.0); PLATELET COUNT (AUTO) 218 K/uL (130-400); RED BLOOD CELL COUNT(AUTO) 4.25 MIL/uL (4.00-5.50); RED CELL DISTRIBUTION WIDTH 14.1 % (11.0-15.5)
--- NOTE | 2024-09-25 11:51 | HMCIMG ---
CHEST 1VW HISTORY: Chest pain COMPARISON: 05/21/2024 FINDINGS: A frontal projection of the chest was obtained. Prominent interstitial markings are seen with possible superimposed infiltrates. The heart is borderline enlarged. Poor inspiratory effort is seen. Degenerative changes are seen. No evidence of aortic calcification is seen. IMPRESSION: 1. Prominent interstitial markings are seen with possible superimposed infiltrates.
[2024-09-25 12:02] LABS: ALBUMIN 3.1 g/dL (3.5-5.0); BILIRUBIN,DIRECT 0.1 mg/dL (0.0-0.3); BILIRUBIN,TOTAL 0.5 mg/dL (0.2-1.0); CREATININE 0.8 mg/dL (0.5-1.0); POTASSIUM 3.4 mmol/L (3.5-5.1); TOTAL PROTEIN, SERUM 6.6 g/dL (6.0-8.3)
[2024-09-25 13:52] LABS: APPEARANCE,URINE CLOUDY (CLEAR); BILIRUBIN,URINE NEGATIVE (NEGATIVE); COLOR,URINE YELLOW (YELLOW); GLUCOSE, URINE (UA) TRACE mg/dL (NEGATIVE); KETONES,URINE NEGATIVE (NEGATIVE); LEUKOCYTE ESTERASE ,URINE 500 Leu/uL (NEGATIVE); NITRATE,URINE NEGATIVE (NEGATIVE); OCCULT BLOOD,URINE SMALL (NEGATIVE); PH,URINE 5.5 (5.0-8.0); PROTEIN,URINE 50 mg/dL (NEGATIVE); UROBILINOGEN,URINE 0.2 mg/dL (0.2-1.0)
[2024-09-25 13:54] LABS: ADD UA MICROSCOPIC YES
[2024-09-25 14:07] LABS: BACTERIA,URINE Few /HPF (None Seen); MUCUS,URINE Rare LPF (None Seen); SQUAMOUS EPITHELIAL CELL,UR Many /HPF (0-2)
[2024-09-25] MEDS: cefTRIAXone 1G VIAL IVPB STA (14:07)
[2024-09-25] MEDS: morPHINE 2 MG SYG IVP STA (14:07)
[2024-09-25] MEDS: ondanSETRON 4MG INJ IVP STA (14:07)
[2024-09-25] MEDS ORDERED: CEPH500B PO (14:10)
[2024-09-25 15:25] VITALS: BP 130/45; PULSE 72; RESP 18; TEMP 97.8; O2SAT 96
--- NOTE | 2024-09-26 08:05 | EKG ---
[facility] Test Date: 2024-09-25 Test Time: 11:16:28 Pat Name: PANKAJ MADRID Department: ED Room: Gender: F Investigator Utility Bill Complaints: [id number] : 1950 Requested By: CHAR BRITO Order Number: [id number] Reading MD: Master Moya Measurements Intervals [place] Rate: 80 P: 32 DC: 167 QRS: -4 QRSD: 83 T: 47 QT: 367 QTc: 423 Interpretive Statements Sinus rhythm Poor R wave progression Electronically Signed On 09-26-2024 12:50:31 CDT by Master Moya Please click the below link to view image of tracing.
== END 2024-09-25 15:49 | disposition home or self-care (01) ==
LOC: EDH 10:25
DX: N39.0 Urinary tract infection, site not specified (principal); E11.9 Type 2 diabetes mellitus without complications; E78.00 Pure hypercholesterolemia, unspecified; I10 Essential (primary) hypertension; J44.9 Chronic obstructive pulmonary disease, unspecified; E66.9 Obesity, unspecified; Z79.85 Long-term (current) use of injectable non-insulin antidiabetic drugs; Z79.899 Other long term (current) drug therapy; Z68.45 Body mass index [BMI] 70 or greater, adult
CPT/HCPCS: 99285; 96374; 96375; 71045; 80076; 80048; 83690; 85025; 87086 ×2; 87186; 81001; 36415; 93005; J2270; J0696; J2405

== ENCOUNTER 2025-02-22 12:14 | Emergency (ER) | payer OTHER, MEDICAID ==
[~2025-02-22] VITALS: Ht 157.5 cm; Wt 93.0 kg
[~2025-02-22 12:14] MED LIST changes: +CEPH500B PO
--- NOTE | 2025-02-22 12:21 | ERN ---
ED Note History of Present Illness Stated Complaint: ABD PAIN X 4 DAYS Chief Complaint: Abdominal Pain Time Seen by MD: 12:17 Dictation: PATIENT IS A 74-YEAR-OLD FEMALE COMING IN VIA EMS WITH COMPLAINTS OF EPIGASTRIC PAIN SEVERE TENDERNESS TO EPIGASTRIC AND LEFT UPPER QUADRANT ONSET FOUR DAYS PRIOR TO ARRIVAL. SHE STATES THE PAIN IS WORSE WITH FOOD. SHE DENIES CHEST PAIN BACK PAIN SOB. SHE STATES SHE HAS A HISTORY OF DIABETES HYPERTENSION AND GASTRITIS HAS NOT SEEN HER DOCTOR IN THE LAST FOUR DAYS. Allergies: Coded Allergies: No Known Allergies (Verified Allergy, Unknown, 02/16/19) No Known Drug Allergies (Unverified Allergy, Unknown, 02/16/19) Home Meds Active Scripts Cephalexin Monohydrate (Keflex) 500 Mg Cap, 1 CAP PO BID for 7 Days, #14 CAP 0 Refills Prov:CHAR BRITO NP 09/25/24 Oseltamivir Phosphate (Oseltamivir Phosphate) 75 Mg Capsule, 1 CAP PO BID for 5 Days, #10 CAP 0 Refills Prov:ARELY RAINEY MD 05/21/24 Doxycycline Monohydrate (Doxycycline Monohydrate) 100 Mg Tablet, 1 TAB PO BID for 7 Days, #14 TAB 0 Refills Prov:ANDREWS CHAUDHRY MD 04/17/24 Methylprednisolone (Medrol) 4 Mg Tab.ds.pk, 1 TAB PO AD for 6 Days, #21 TAB 0 Refills 6 on day 1 then reduce by one tablet daily until gone Prov:STEFANI RODRIGUEZ AGPCNP 04/03/24 Reported Medications Semaglutide (Ozempic) 1 Mg/0.75 Ml (4 Mg/3 Ml) Pen.injctr, 1 MG SQ QWEEK for 30 Days, #3 ML 0 Refills 03/30/24 Losartan/Hydrochlorothiazide (Losartan-Hctz 50-12.5 mg Tab) 50 Mg-12.5 Mg Tablet, 1 TAB PO DAILY for 30 Days, #30 TAB 0 Refills 03/30/24 Pramipexole Di-HCl (Pramipexole Dihydrochloride) 0.125 Mg Tablet, 1 TAB PO HS 05/19/23 Isosorbide Mononitrate (Isosorbide Mononitrate) 20 Mg Tablet, 1 TAB PO BID 05/19/23 Fluticasone/Umeclidin/Vilanter (Trelegy Ellipta 200-62.5-25) 1 Each Blst.w.dev, 1 EACH IH DAILY 01/13/22 Empagliflozin/Metformin HCl (Synjardy Xr 25-1,000 mg Tablet) 1 Each Tab.bp.24h, 1 EACH PO DAILYBKFST 01/13/22 Montelukast Sodium (Montelukast Sodium) 10 Mg Tablet, 10 MG PO DAILY, TAB 01/13/22 Potassium Chloride (Potassium Chloride) 10 Meq Tab.er.prt, 10 MEQ PO DAILY 11/14/18 Citalopram Hydrobromide (Citalopram HBr) 10 Mg Tablet, 10 MG PO DAILY, TAB 11/14/18 Atorvastatin Calcium (LIPITOR) 40 Mg Tablet, 40 MG PO HS, TAB 11/14/18 [Vitamin D2 ] No Conflict Check, [address] UNITS PO Q Saturdays06/15/16 Past Medical History Past Medical History: Unable to Obtain Additional Past Medical Hx: OBESITY Surgical History: Unknown Surgical History Other: BILAT KNEE Family History: Negative Social History: Negative, Lives with family History: Not Applicable RN Note Reviewed/Agreed w/PFSH: Yes Review of System Dictation CONSTITUTIONAL: NEGATIVE EXCEPT FOR HPI HEAD/FACE: NEGATIVE EXCEPT FOR HPI EENT: NEGATIVE EXCEPT FOR HPI RESPIRATORY: NEGATIVE EXCEPT FOR HPI GASTROINTESTINAL/ABDOMINAL: NEGATIVE EXCEPT FOR HPI EPIGASTRIC AND LEFT UPPER QUADRANT PAIN FOUR DAYS GENITOURINARY: NEGATIVE EXCEPT FOR HPI MUSCULOSKELETAL: NEGATIVE EXCEPT FOR HPI INTEGUMENTARY: NEGATIVE EXCEPT FOR HPI NEUROLOGICAL/PSYCH: NEGATIVE EXCEPT FOR HPI HEMATOLOGIC/LYMPHATIC: NEGATIVE EXCEPT FOR HPI ALL SYSTEMS NEGATIVE, EXCEPT NOTED ABOVE. 13 POINT REVIEW OF SYSTEMS ASSESSED AND ALL NEGATIVE EXCEPT FOR ABOVE. Initial Vital Sign VS Vital Signs Date Time Temp Pulse Resp B/P (MAP) Pulse Ox O2 Delivery O2 Flow Rate FiO2 02/22/25 12:17 97.2 79 16 107/56 96 Room Air 0 02/22/25 15:47 21 Physical Exam Dictation VITAL SIGNS REVIEWED GENERAL APPEARANCE: ALERT, ORIENTED X 3, MODERATE ACUTE DISTRESS, WELL DEVELOPED, NOURISHED. OBESE HEAD AND FACE: NON-TRAUMATIC. EYES: PERRL, PINK CONJUNCTIVAS, EYELID NO TRAUMA, ANTERIOR CHAMBER WITH ARCUS SENILIS. EARS: PINNAS INTACT AND NO SIGNS OF TRAUMA OR ERYTHEMA EAR CANALS CLEAR AND NO DISCHARGE TM NO ERYTHEMA NOSE: NO DISCHARGE, NO BLEEDING. OROPHARYNX: MOUTH NORMAL, TONGUE PINK, PHARYNX CLEAR,NO ERYTHEMA, TONSILS NO EXUDATES, NO ABSCESSES NOTED, MUCOUS MEMBRANE MOIST NECK: SUPPLE, NON-TENDER, NO THYROMEGALY, NO MASSES, NO JVD, NO BRUITS BREAST:DEFERRED CHEST:NO TENDERNESS, NO CREPITUS, NO PARADOXICAL MOVEMENT, NO RETRACTIONS LUNGS:CLEAR, WELL-VENTILATED, SYMMETRIC, NO RALES, NO WHEEZING, NO RHONCHI, NO STRIDOR, GOOD BREATH SOUNDS BILATERALLY HEART: REGULAR RATE, REGULAR RHYTHM, NO MURMUR, NO GALLOPS VASCULAR: NO PERIPHERAL EDEMA, ABDOMEN: SOFT, POSITIVE BOWEL SOUNDS, NONDISTENDED, NO GUARDING, EPIGASTRIC AND LEFT UPPER QUADRANT PAIN TENDERNESS WITH PALPATION. STATES THE PAIN RADIATES UP HER SUBSTERNAL AREA. RECTAL: DEFERRED GENITAL: DEFERRED NEUROLOGICAL: NORMAL SPEECH, MOTOR FUNCTION INTACT, SENSORY FUNCTION INTACT MUSCULOSKELETAL: NECK NONTENDER, FULL RANGE OF MOTION, BACK NONTENDER, FULL RANGE OF MOTION, EXTREMITIES: NONTENDER, FULL RANGE OF MOTION SKIN: COLOR PINK, DRY, NO TURGOR, NO RASH, NO LACERATIONS, NO ABRASIONS, NO CONTUSIONS. LYMPHATIC: DEFERRED Results (Laboratory/Radiology) Laboratory/Radiology Laboratory Tests Test 02/22/25 12:50 02/22/25 16:24 White Blood Count 9.6 K/uL (4.8-10.8) Red Blood Count 3.87 MIL/uL (4.00-5.50) L Hemoglobin 11.5 g/dL (12.0-16.0) L Hematocrit 34.6 % (36-48) L Mean Corpuscular Volume 89.4 fL (79-99) Mean Corpuscular Hemoglobin 29.7 pg (27.0-33.0) Mean Corpuscular Hemoglobin Concent 33.2 g/dL (32.0-36.0) Red Cell Distribution Width 13.1 % (11.0-15.5) Platelet Count 259 K/uL (130-400) Mean Platelet Volume 10.4 fL (7.5-10.5) Immature Granulocyte % (Auto) 0.5 % (0-1) Neutrophils (%) (Auto) 70.4 % (40.0-77.0) Lymphocytes (%) (Auto) 16.8 % (21.0-51.0) L Monocytes (%) (Auto) 6.5 % (3.0-13.0) Eosinophils (%) (Auto) 5.2 % (0.0-8.0) Basophils (%) (Auto) 0.6 % (0.0-5.0) Neutrophils # (Auto) 6.8 K/uL (1.8-7.7) Lymphocytes # (Auto) 1.6 K/uL (1.0-4.8) Monocytes # (Auto) 0.6 K/uL (0.1-1.0) Eosinophils # (Auto) 0.50 K/uL (0.00-0.70) Basophils # (Auto) 0.06 K/uL (0.00-0.20) Absolute Immature Granulocyte (auto 0.05 K/uL (0-1) Nucleated Red Blood Cells 0.0 % (0.0-0.19) Sodium Level 142 mmol/L (136-145) Potassium Level 4.2 mmol/L (3.5-5.1) Chloride Level 104 mmol/L (101-111) Carbon Dioxide Level 26 mmol/L (21-32) Blood Urea Nitrogen 15 mg/dL (7-18) Creatinine 0.9 mg/dL (0.5-1.0) Glomerular Filtration Rate Calc 68 mL/min (>90) Random Glucose 91 mg/dL (70-105) Total Calcium 8.8 mg/dL (8.5-10.1) Troponin I High Sensitivity 5 ng/L (4-50) Lipase 42 U/L (16-77) Urine Color YELLOW (YELLOW) Urine Appearance CLEAR (CLEAR) Urine pH 5.5 (5.0-8.0) Urine Specific [place] 1.028 (1.001-1.031) Urine Protein 10 mg/dL (NEGATIVE) H Urine Glucose (UA) >=1000 mg/dL (NEGATIVE) H Urine Ketones NEGATIVE mg/dL (NEGATIVE) Urine Occult Blood NEGATIVE (NEGATIVE) Urine Nitrate NEGATIVE (NEGATIVE) Urine Bilirubin NEGATIVE mg/dL (NEGATIVE) Urine Urobilinogen 0.2 mg/dL (0.2-1.0) Urine Leukocyte Esterase 75 Vahid/uL (NEGATIVE) H Urine RBC 2-5 /HPF (0-1) H Urine WBC 2-5 /HPF (0-1) H Urine Squamous Epithelial Cells FEW /HPF (0-2) Urine Bacteria RARE /HPF (None Seen) Urine Hyaline Casts 0-1 /LPF (0-1 /LPF) Urine Other Casts 2 /LPF (None Seen) Labs Reviewed?: Yes EKG: (+) NSR EKG Comment: EKG NORMAL SINUS RHYTHM/HEART RATE 73/AXIS NORMAL/NO ECTOPY ED Course ED Course Orders Procedure Category Date Status Time Cbc With Differential LAB 02/22/25 Complete 12:17 Troponin I High LAB 02/22/25 Complete Sensitivity 12:17 Urinalysis Profile LAB 02/22/25 Complete 12:17 12 Lead Ekg Tracing- EKG 02/22/25 Complete Technical 12:17 0.9%Nacl 1000ml (Ns PHA 02/22/25 Complete 1000ml) 12:30 Ondansetron 4mg Inj PHA 02/22/25 Complete (Zofran 4mg Inj) 12:30 Lidocaine Hcl 2% PHA 02/22/25 Complete Viscous (Lidocaine Hcl 12:30 Mag/Alum/Simeth 30ml PHA 02/22/25 Complete (Maalox Plus 30ml) 12:30 Dicyclomine Hcl PHA 02/22/25 Complete (Bentyl 10mg/5ml 12:30 Lipase LAB 02/22/25 Complete 12:17 Basic Metabolic Panel LAB 02/22/25 Complete 12:17 Morphine 4mg Syg PHA 02/22/25 Complete (Morphine 4mg Syg) 12:30 Culture Urine FRANCISCO J 02/22/25 Logged 16:44 Famotidine 20mg Vial PHA 02/22/25 Verified (Pepcid 20mg Vial) 17:00 Current Medications Medications (Trade) Dose Ordered Sig/Pamela Route PRN Reason Start Time Stop Time Status Last Admin Dose Admin Al Hydroxide/Mg Hydroxide (MAALox PLUS 30ML) 30 ml ONCE ONCE PO 02/22/25 12:30 02/22/25 12:31 DC 02/22/25 14:00 Dicyclomine HCl (Bentyl 10mg/5ml Syrup) 10 mg ONCE ONCE PO 02/22/25 12:30 02/22/25 12:31 DC 02/22/25 13:59 Lidocaine HCl (Lidocaine HCl 2% Viscous) 10 ml ONCE ONCE PO 02/22/25 12:30 02/22/25 12:31 DC 02/22/25 14:02 Morphine Sulfate (morPHINE 4MG SYG) 2 mg ONCE ONCE IVP 02/22/25 12:30 02/22/25 12:31 DC 02/22/25 12:58 Ondansetron HCl (zoFRAN 4MG INJ) 4 mg ONCE ONCE IVP 02/22/25 12:30 02/22/25 12:31 DC 02/22/25 12:58 Sodium Chloride 1,000 ml @ 0 mls/hr ONCE ONCE IV 02/22/25 12:30 02/22/25 12:31 DC 02/22/25 12:57 Vital Signs Date Time Temp Pulse Resp B/P (MAP) Pulse Ox O2 Delivery O2 Flow Rate FiO2 02/22/25 15:47 70 13 103/42 100 Room Air* 0 21 02/22/25 12:17 97.2 79 16 107/56 96 Room Air 0 1700/PATIENT HAS MILD EPIGASTRIC TENDERNESS. STATE THE GI COCKTAIL HELP TREMENDOUSLY WITH HER PAIN. SHE WILL BE GIVEN PEPCID PRIOR TO DISCHARGED HOME WITH A DIAGNOSIS GASTRITIS AND ATYPICAL CHEST PAIN. HEART Score Response (Comments) Value History: Low suspicion (0) 0 Age: > 65yrs (+2) 2 Risk Factors: 1-2 risk factors (+1) 1 Initial Troponin: Normal limit (0) 0 Total 3 Medical Decision Making MDM MDM: DIFFERENTIAL DIAGNOSIS: ACS/AMI/PANCREATITIS/GASTRITIS/ELECTROLYTE IMBALANCE/DEHYDRATION/UTI RATIONALE: TESTS CONSIDERED AND ORDERED SECONDARY TO SHARED DECISION MAKING INCLUDE: EKG/LABS PREVIOUS OUTSIDE RECORDS REVIEWED: OLD ER VISITS. RISK OF COMPLICATION AND/OR MORBIDITY OR MORTALITY OF PATIENT MANAGEMENT: NONE MEDICATIONS-PER MEDICATION RECONCILIATION NEED FOR HOSPITALIZATION: PATIENT DOES NOT MEET CRITERIA FOR HOSPITALIZATION. NO NEED FOR EMERGENCY MAJOR/MINOR SURGERY: NO THERE ARE NO SOCIAL CONCERNS WITH THIS PATIENT. PRESCRIPTION DRUG MANAGEMENT CARAFATE/OMEPRAZOLE PRESCRIPTIONS WILL INCLUDE SYMPTOMATIC CARE PATIENT'S PRIOR EXTERNAL MEDICAL RECORDS FROM OTHER ER VISITS WERE REVIEWED BY ME INDICATED. PRIOR TESTING AND RESULTS FROM PREVIOUS VISITS WERE REVIEWED. PRIOR TESTS WERE TAKEN INTO ACCOUNT WITH MEDICAL DECISION MAKING AND RESOURCE UTILIZATION, INDEPENDENT HISTORIAN/HISTORIANS WERE USED TO OBTAIN COMPLETE [facility] HISTORY. I INDEPENDENTLY INTERPRETED THE TEST THAT WERE PERFORMED, RESULTS WERE REVIEWED BY ME AND CONSIDERED FINDINGS ON RADIOLOGY IF ORDERED. MEDICAL MANAGEMENT AND EXAMINATION INTERPRETATION DISCUSSIONS WERE HAD BY ME WITH OTHER QUALIFIED HEALTHCARE PROFESSIONALS INDICATED FOR THE PATIENT'S CARE. DX & DISP Disposition: Discharge Departure Impression: Primary Impression: Acute gastritis Additional Impressions: Stage 3 chronic kidney disease, Anemia of chronic renal failure, stage 3a, UTI (urinary tract infection) Condition: Stable Scripts Sucralfate (Carafate) 1 Gram Tablet 1 GM PO ACHS for 10 Days, #40 TAB Prov: BETZAIDA SPARKS NP 02/22/25 Omeprazole (Omeprazole) 40 Mg Capsule.dr 1 CAP PO DAILY for 30 Days, #30 CAP 0 Refills Prov: BETZAIDA SPARKS NP 02/22/25 Nitrofurantoin/Nitrofuran Mac (Macrobid) 100 Mg Cap 1 CAP PO BID for 7 Days, #14 CAP 0 Refills Prov: BETZAIDA SPARKS NP 02/22/25 Additional Instructions: FOLLOW-UP WITH PRIMARY CARE PROVIDER IN 1 TO 2 DAYS. TAKE MEDICATIONS DIRECTED HERE IN THE EMERGENCY ROOM. OKAY TO CONTINUE HOME MEDICATIONS UNLESS OTHERWISE DISCUSSED DURING YOUR VISIT IN THE EMERGENCY ROOM TODAY. RETURN TO YOUR NEAREST EMERGENCY ROOM IF SYMPTOMS WORSEN OR IF THERE IS NO IMPROVEMENT. CALL 911 IF YOU NEED IMMEDIATE ASSISTANCE. TAKE TYLENOL OR MOTRIN VMUI-[id number] NEEDED AND IF NO CONTRAINDICATIONS ARE PRESENT. INCREASE ORAL HYDRATION. A WOUND CULTURE OR URINE CULTURE WAS ORDERED HERE IN THE EMERGENCY ROOM DEPARTMENT PLEASE FOLLOW-UP WITH PRIMARY CARE PROVIDER AND ADVISE THEM TO GET REPEAT PORTS FROM OUR FACILITY. IF YOU HAD ANY PETRA WRAP/SPLINTS THAT WERE APPLIED HERE, PLEASE DO NOT REMOVE THEM UNTIL YOU SEE YOUR PRIMARY CARE OR SPECIALTY. TAKE MACRODANTIN DIRECTED. TAKE CARAFATE DIRECTED WITH THE OMEPRAZOLE AND SEE YOUR PRIMARY CARE DOCTOR FOR FOLLOW UP. WATER WITH WITH MEALS ONLY, NO COKES, NO ICE TEA, NO ALCOHOL, NO SPICY FOODS, NO BUBBLY DRINKS, NO CITRUS FRUIT JUICE UNTIL CLEARED BY YOUR DOCTOR. Referrals: DANIELE BUENO MD (PCP) Time of Disposition: 17:02 I have reviewed the case, and I agree with, Diagnosis and Plan BETZAIDA SPARKS NP Feb 22, 2025 12:21
--- NOTE | 2025-02-22 12:28 | NUR ---
PT JUST NOW BEING PLACED IN [facility] BY [facility].
[2025-02-22] MEDS: 0.9%NACL 1000ML 1,000 ML IV ONE (12:57)
[2025-02-22 12:58] LABS: IMMATURE GRANULOCYTE ABSOLUTE 0.05 K/uL (0-1); NUCLEATED RED BLOOD CELLS 0.0 % (0.0-0.19); PLATELET COUNT (AUTO) 259 K/uL (130-400); RED BLOOD CELL COUNT(AUTO) 3.87 MIL/uL (4.00-5.50); RED CELL DISTRIBUTION WIDTH 13.1 % (11.0-15.5); WHITE BLOOD COUNT (AUTO) 9.6 K/uL (4.8-10.8)
[2025-02-22 13:15] LABS: CREATININE 0.9 mg/dL (0.5-1.0); GLOMERULAR FILTR. RATE CALC 68.0 mL/min (>90); GLUCOSE,RANDOM 91.0 mg/dL (70-105); SODIUM SERUM 142.0 mmol/L (136-145); UREA NITROGEN, BLOOD 15.0 mg/dL (7-18)
--- NOTE | 2025-02-22 13:47 | EKG ---
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
[2025-02-22] MEDS: DICYCLOMINE HCL 10 MG/5 ML ML PO ONE (13:59)
[2025-02-22] MEDS: MAG/ALUM/SIMETH 30 ML UDCUP PO ONE (14:00)
[2025-02-22] MEDS: LIDOCAINE HCL 2% VISCOUS 15 ML UDCUP PO ONE (14:02)
[2025-02-22 16:43] LABS: APPEARANCE,URINE CLEAR (CLEAR); GLUCOSE, URINE (UA) >=1000 mg/dL (NEGATIVE); LEUKOCYTE ESTERASE ,URINE 75 Leu/uL (NEGATIVE); NITRATE,URINE NEGATIVE (NEGATIVE); OCCULT BLOOD,URINE NEGATIVE (NEGATIVE)
[2025-02-22 16:44] LABS: ADD UA MICROSCOPIC YES
[2025-02-22 16:45] LABS: HYALINE CASTS, URINE 0-1 /LPF (0-1 /LPF); OTHER CASTS, URINE 2 /LPF (None Seen); SQUAMOUS EPITHELIAL CELL,UR FEW /HPF (0-2)
[2025-02-22] MEDS ORDERED: OMEP40CA21 PO (17:07)
[2025-02-22] MEDS ORDERED: MACR100 PO (17:07)
[2025-02-22] MEDS ORDERED: SUCR1TAB28 PO (17:07)
[2025-02-22] MEDS: FAMOTIDINE 20MG VIAL IV ONE (17:17)
[2025-02-22 17:27] VITALS: BP 109/41; PULSE 73; RESP 12; TEMP 97.6; O2SAT 95
--- NOTE | 2025-02-22 18:11 | NUR ---
PT'S SISTER AT BEDSIDE TO SCRUM MASTER PT.
== END 2025-02-22 18:20 | disposition home or self-care (01) ==
LOC: EDH 12:14
DX: K29.00 Acute gastritis without bleeding (principal); N18.31 Chronic kidney disease, stage 3a; D63.1 Anemia in chronic kidney disease; N39.0 Urinary tract infection, site not specified; E66.9 Obesity, unspecified; Z79.899 Other long term (current) drug therapy
CPT/HCPCS: 99284; 96374; 96361; 96375; 84484; 80048; 83690; 85025; 87086; 81001; 36415; 93005; J1308; J7030; J2405; J2270